=== PATIENT | male | born 1935 | race Caucasian/White ===

== ENCOUNTER 2017-12-02 20:16 | Inpatient (IN) ==
[2017-12-02] MEDS ORDERED: 0.9 % Sodium Chloride 500 ML IVC ONE (20:19)
[2017-12-02] MEDS ORDERED: Propofol 500 MG/50 ML INFUS..BTL ONE (20:28)
[2017-12-02] MEDS ORDERED: Propofol 500 MG/50 ML INFUS..BTL IVC SCH (20:30)
--- NOTE | 2017-12-02 20:31 | Emergency Department Note ---
Disposition Clinical Impression: Endotracheally intubated, Infiltrate of lung present on imaging of chest Postoperative cardiac arrest Qualifiers: Procedure type: cardiac Qualified Code(s): I97.120 - Postprocedural cardiac arrest following cardiac surgery Disposition: Admitted As Inpatient Condition: Critical [facility]Primary Care Provider[facility] - Forms: ED Satisfaction Letter, Work/School Release Time of Disposition: 00:06 General Adult HPI - General Chief complaint: ED General Medical Stated complaint: Post Arrest Time Seen by Provider: 12/02/17 20:19 Source: EMS Mode of arrival: EMS Limitations: physical limitation Nursing Notes Reviewed: Yes Vital Signs Reviewed: Yes - History of Present Illness HPI Narrative: Patient is an 82-year-old male that presents to the emergency department after cardiac arrest at the [facility]. Patient was transferred here for further evaluation and management. Patient was unresponsive and intubated upon arrival. Patient is being seen at the [facility] for respiratory issues. - Related Data Home Medications Medication Instructions Recorded Confirmed Acetaminophen [Tylenol] 1,000 mg PO TID PRN 12/02/17 12/02/17 Calcium Carbonate/Vitamin D3 1 each PO BID 12/02/17 12/02/17 [Calcium 500-Vit D3 200 Tablet] Cholecalciferol (D-3) [Vitamin D] 2,000 unit PO DAILY 12/02/17 12/02/17 Diclofenac Sodium [Voltaren] 2 gm TP QID PRN MDD 16 gm 12/02/17 12/02/17 Duloxetine HCl [Cymbalta] 60 mg PO DAILY 12/02/17 12/02/17 Finasteride [Proscar] 5 mg PO DAILY 12/02/17 12/02/17 Lactose-Reduced Food [Ensure Plus] 1 bottle PO BID 12/02/17 12/02/17 Levothyroxine [Synthroid] 75 mcg PO 0630 12/02/17 12/02/17 Lidocaine Patch [Lidoderm 5% patch] 1 each TP DAILY 12/02/17 12/02/17 Multivitamin-Min/Iron/FA/Vit K 1 each PO DAILY 12/02/17 12/02/17 [Multi-Day Plus Minerals Tablet] Omeprazole [PriLOSEC] 20 mg PO DAILY 12/02/17 12/02/17 Sennosides [Senna] 8.6 mg PO DAILY 12/02/17 12/02/17 Tamsulosin [Flomax] 0.4 mg PO HS 12/02/17 12/02/17 Allergies Allergy/AdvReac Type Severity Reaction Status Date / Time Sulfa (Sulfonamide Allergy See Verified 12/02/17 20:46 Antibiotics) Comments Limitations: ROS unobtainable due to patients medical condition Physical Exam - General Limitations: physical limitation - Head Head exam: atraumatic, normocephalic - Neck Neck exam: Present: normal inspection, trachea midline - Respiratory Respiratory exam: Present: other (Patient is currently intubated with bilateral breath sounds) - Cardiovascular Cardiovascular exam: Present: regular rate, normal rhythm, normal heart sounds, +S1, +S2 - Abdominal Exam Abdominal exam: Present: soft, normal bowel sounds. Absent: distention, rigidity - Neurological Exam Neurological exam: Present: other (Patient is currently intubated and sedated ) - Psychiatric Psychiatric exam: Present: other (Unable to assess due to patient being intubated and sedated ) - Skin Skin exam: Present: warm, dry, intact Course Vital Signs Temperature 0 F L 12/02/17 20:19 Pulse Rate 87 12/02/17 20:19 Respiratory Rate 12 12/02/17 20:19 Blood Pressure 183/125 12/02/17 20:19 O2 Sat by Pulse Oximetry 100 12/02/17 20:19 Temperature 0 F L 12/02/17 20:19 Pulse Rate 76 12/02/17 23:05 Respiratory Rate 16 12/02/17 23:05 Blood Pressure 142/94 12/02/17 23:05 O2 Sat by Pulse Oximetry 100 12/02/17 23:05 Oxygen Delivery Oxygen Delivery Ventilator Medical Decision Making - MDM Narrative Medical decision making narrative: Due the patient presenting postarrest EKG, chest x-ray ct scan and laboratory testing. I spoke with the patient's family upon their arrival and explained the current status of the patient. I also informed me that the patient is currently being worked up for possible ALS. They have also described the patient wanting to be full code based on he would like a couple rounds of CPR but would not want to be on a ventilator long-term. The patient's EKG showed depressions in V3 and V4 however there is no previous EKG for comparison. EKGs were sent to Dr. Larsen the trainer for review. We discussed this case and have her reviewed the EKGs and she was in agreement that there was no evidence of STEMI or Brugada on either the EKGs that were obtained on this patient. Troponin was negative. Patient had a questionable right upper lobe infiltrate. The patient has been given broad-spectrum antibiotics here in the emergency department. I called and spoke to the hospitalist and the patient has been accepted to their service. The patient will be admitted to the hospital at this time for further evaluation and management. There is been no acute changes while the patient has been here in the emergency department. - Lab Data Lab results reviewed: Yes I reviewed the patient's lab results. Result diagrams: 12/02/17 20:25 12/02/17 20:25 Lab Results 12/02/17 12/02/17 12/02/17 Range/Units 20:20 20:25 20:25 WBC (4.3-11.1) K/mcL RBC (4.19-5.50) M/mcL Hgb (12.9-16.9) g/dL Hct (37.5-50.1) % MCV (83.0-100.0) fL MCH (28.0-33.3) pg MCHC (31.6-35.5) g/dL RDW (11.5-14.5) % Plt Count (140-400) K/mcL MPV (9.4-12.4) fL Immature Gran % (0-4) % Seg Neutrophils % % Lymphocytes % % Monocytes % % Eosinophils % % Basophils % % Neutrophils # (1.6-8.9) K/mcL Lymphocytes # (0.6-4.6) K/mcL Monocytes # (0.0-1.3) K/mcL Eosinophils # (0.0-0.6) K/mcL Basophils # (0.0-0.2) K/mcL Platelet Estimate (Normal) PT 9.5 (9.4-12.1) Seconds INR 0.9 APTT 39.3 H (26.0-36.0) Seconds ABG pH (7.32-7.45) pH Units ABG pCO2 (35-45) mmHg ABG pO2 (85-104) mmHg ABG HCO3 (21-27) mEq/L ABG Total CO2 (20-26) mEq/L ABG O2 Saturation (95-98) % ABG Base Excess (-2 to 3) mEq/L Sodium (136-145) mEq/L Potassium (3.5-5.1) mEq/L Chloride (98-107) mEq/L Carbon Dioxide (23-29) mEq/L BUN (8-23) mg/dL Creatinine (0.70-1.30) mg/dL Est GFR ( Amer) (> 60) Est GFR (Non-Af Amer) (> 60) BUN/Creatinine Ratio (6-26) Glucose (70-105) mg/dL POC Glucose 209 H (58-89) Calculated Osmolality (280-300) Calcium (8.6-10.3) mg/dL Total Bilirubin (0.3-1.0) mg/dL Direct Bilirubin (0.0-0.2) mg/dL Indirect Bilirubin (0.0-1.2) mg/dL AST (13-39) Units/L ALT (7-52) Units/L Alkaline Phosphatase (34-104) Units/L Troponin I (< 0.04) ng/mL B-Natriuretic Peptide 43 (Less than 100) pg/mL Serum Total Protein (6.4-8.9) g/dL Albumin (3.5-5.7) g/dL Globulin (2.4-3.5) g/dL Albumin/Globulin Ratio (1.1-2.2) Lipase (11-82) Units/L Urine Color (Yellow) Urine Clarity (Clear) Urine pH (5.0-8.0) pH Units Ur Specific Roann (1.010-1.025) Urine Protein (Neg-Trace) mg/dL Urine Glucose (UA) (Normal) mg/dL Urine Ketones (Negative) mg/dL Urine Blood (Negative) Urine Nitrite (Negative) Urine Bilirubin (Negative) Urine Urobilinogen (Normal) mg/dL Ur Leukocyte Esterase (Negative) Urine Microscopic RBC (0-3) per hpf Urine Microscopic WBC (0-3) per hpf Ur Squamous Epith Cells (None-Few) per lpf Urine Bacteria (None-Few) per hpf Hyaline Casts (None-Few) per lpf Ur Culture Indicated? (NO) 12/02/17 12/02/17 12/02/17 Range/Units 20:25 20:25 20:25 WBC 8.1 (4.3-11.1) K/mcL RBC 4.14 L (4.19-5.50) M/mcL Hgb 13.3 (12.9-16.9) g/dL Hct 37.5 (37.5-50.1) % MCV 90.6 (83.0-100.0) fL MCH 32.1 (28.0-33.3) pg MCHC 35.5 (31.6-35.5) g/dL RDW 12.1 (11.5-14.5) % Plt Count 272 (140-400) K/mcL MPV 9.2 L (9.4-12.4) fL Immature Gran % 0.6 (0-4) % Seg Neutrophils % 94.2 % Lymphocytes % 1.8 % Monocytes % 3.4 % Eosinophils % 0.0 % Basophils % 0.0 % Neutrophils # 7.6 (1.6-8.9) K/mcL Lymphocytes # 0.2 L (0.6-4.6) K/mcL Monocytes # 0.3 (0.0-1.3) K/mcL Eosinophils # 0.0 (0.0-0.6) K/mcL Basophils # 0.0 (0.0-0.2) K/mcL Platelet Estimate Normal (Normal) PT (9.4-12.1) Seconds INR APTT (26.0-36.0) Seconds ABG pH (7.32-7.45) pH Units ABG pCO2 (35-45) mmHg ABG pO2 (85-104) mmHg ABG HCO3 (21-27) mEq/L ABG Total CO2 (20-26) mEq/L ABG O2 Saturation (95-98) % ABG Base Excess (-2 to 3) mEq/L Sodium 132 L (136-145) mEq/L Potassium 4.1 (3.5-5.1) mEq/L Chloride 96 L (98-107) mEq/L Carbon Dioxide 29 (23-29) mEq/L BUN 30 H (8-23) mg/dL Creatinine 0.53 L (0.70-1.30) mg/dL Est GFR ( Amer) > 60 (> 60) Est GFR (Non-Af Amer) > 60 (> 60) BUN/Creatinine Ratio 57 H (6-26) Glucose 230 H (70-105) mg/dL POC Glucose (58-89) Calculated Osmolality 287 (280-300) Calcium 8.8 (8.6-10.3) mg/dL Total Bilirubin 0.4 (0.3-1.0) mg/dL Direct Bilirubin 0.0 (0.0-0.2) mg/dL Indirect Bilirubin 0.4 (0.0-1.2) mg/dL AST 37 (13-39) Units/L ALT 25 (7-52) Units/L Alkaline Phosphatase 57 (34-104) Units/L Troponin I < 0.03 (< 0.04) ng/mL B-Natriuretic Peptide (Less than 100) pg/mL Serum Total Protein 6.3 L (6.4-8.9) g/dL Albumin 3.8 (3.5-5.7) g/dL Globulin 2.5 (2.4-3.5) g/dL Albumin/Globulin Ratio 1.5 (1.1-2.2) Lipase 60 (11-82) Units/L Urine Color (Yellow) Urine Clarity (Clear) Urine pH (5.0-8.0) pH Units Ur Specific Roann (1.010-1.025) Urine Protein (Neg-Trace) mg/dL Urine Glucose (UA) (Normal) mg/dL Urine Ketones (Negative) mg/dL Urine Blood (Negative) Urine Nitrite (Negative) Urine Bilirubin (Negative) Urine Urobilinogen (Normal) mg/dL Ur Leukocyte Esterase (Negative) Urine Microscopic RBC (0-3) per hpf Urine Microscopic WBC (0-3) per hpf Ur Squamous Epith Cells (None-Few) per lpf Urine Bacteria (None-Few) per hpf Hyaline Casts (None-Few) per lpf Ur Culture Indicated? (NO) 12/02/17 12/02/17 Range/Units 20:41 22:31 WBC (4.3-11.1) K/mcL RBC (4.19-5.50) M/mcL Hgb (12.9-16.9) g/dL Hct (37.5-50.1) % MCV (83.0-100.0) fL MCH (28.0-33.3) pg MCHC (31.6-35.5) g/dL RDW (11.5-14.5) % Plt Count (140-400) K/mcL MPV (9.4-12.4) fL Immature Gran % (0-4) % Seg Neutrophils % % Lymphocytes % % Monocytes % % Eosinophils % % Basophils % % Neutrophils # (1.6-8.9) K/mcL Lymphocytes # (0.6-4.6) K/mcL Monocytes # (0.0-1.3) K/mcL Eosinophils # (0.0-0.6) K/mcL Basophils # (0.0-0.2) K/mcL Platelet Estimate (Normal) PT (9.4-12.1) Seconds INR APTT (26.0-36.0) Seconds ABG pH 7.33 (7.32-7.45) pH Units ABG pCO2 63 H (35-45) mmHg ABG pO2 411 H (85-104) mmHg ABG HCO3 33 H (21-27) mEq/L ABG Total CO2 35 H (20-26) mEq/L ABG O2 Saturation 100 H (95-98) % ABG Base Excess 5 H (-2 to 3) mEq/L Sodium (136-145) mEq/L Potassium (3.5-5.1) mEq/L Chloride (98-107) mEq/L Carbon Dioxide (23-29) mEq/L BUN (8-23) mg/dL Creatinine (0.70-1.30) mg/dL Est GFR ( Amer) (> 60) Est GFR (Non-Af Amer) (> 60) BUN/Creatinine Ratio (6-26) Glucose (70-105) mg/dL POC Glucose (58-89) Calculated Osmolality (280-300) Calcium (8.6-10.3) mg/dL Total Bilirubin (0.3-1.0) mg/dL Direct Bilirubin (0.0-0.2) mg/dL Indirect Bilirubin (0.0-1.2) mg/dL AST (13-39) Units/L ALT (7-52) Units/L Alkaline Phosphatase (34-104) Units/L Troponin I (< 0.04) ng/mL B-Natriuretic Peptide (Less than 100) pg/mL Serum Total Protein (6.4-8.9) g/dL Albumin (3.5-5.7) g/dL Globulin (2.4-3.5) g/dL Albumin/Globulin Ratio (1.1-2.2) Lipase (11-82) Units/L Urine Color Yellow (Yellow) Urine Clarity Cloudy A (Clear) Urine pH 6.0 (5.0-8.0) pH Units Ur Specific Roann 1.026 H (1.010-1.025) Urine Protein Trace (Neg-Trace) mg/dL Urine Glucose (UA) 500 H (Normal) mg/dL Urine Ketones Negative (Negative) mg/dL Urine Blood Small H (Negative) Urine Nitrite Negative (Negative) Urine Bilirubin Negative (Negative) Urine Urobilinogen Normal (Normal) mg/dL Ur Leukocyte Esterase Large H (Negative) Urine Microscopic RBC 0-3 (0-3) per hpf Urine Microscopic WBC TNTC H (0-3) per hpf Ur Squamous Epith Cells Few (None-Few) per lpf Urine Bacteria None Seen (None-Few) per hpf Hyaline Casts None Seen (None-Few) per lpf Ur Culture Indicated? YES A (NO) - Radiology Data Radiology results reviewed: Yes I reviewed the patient's radiology results. Chest X-Ray 12/02/17 20:20 IMPRESSION: Questionable right upper lobe infiltrate. Endotracheal tube tip above the thoracic inlet 7.2 cm above the akash. Suggest advancement several cm. D/ / Gera Shay MD / Gera Shay MD Interpreting Provider: Gera Shay MD Head CT 12/02/17 20:40 IMPRESSION: No acute intracranial abnormality. 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 D/ / Franklin Roberts MD / Franklin Roberts MD Interpreting Provider: Franklin Roberts MD - EKG Data EKG #1 EKG attestation: Yes I reviewed and interpreted this EKG. EKG results narrative: EKG showed a sinus rhythm at a rate of 84 bpm, SD interval of 165, QRS duration 152, QTC of 444 with a normal axis. There was some anterior lateral depressions in leads V3 V4, V5 and V6. EKG #2 EKG attestation: Yes I reviewed and interpreted this EKG. EKG results narrative: EKG showed a sinus rhythm at a rate of 76 bpm, SD interval of 151, respiration of 94, QTC of 433 with a normal axis. There is no STEMI noted on this EKG. The patient's EKGs have been sent to cardiology for review. They are in agreement that there is no evidence of STEMI or Brugada on EKG. Critical Care Time Critical Care Time: Yes Total Critical Care Time: 45 Attestation: Critical care performed: Time is exclusive of separately billable procedures. Time includes: direct patient care, patient reassessment, coordination of patient care, interpretation of data (laboratory data, radiology data, and respiratory data), review of patient's medical records, medical consultation and documentation of patient care. Procedures included in critical care time: Procedures excluded from critical care time: Attestation Statement - Attestation Attestation: I, Pedro Joseph DO, examined this patient [id number] and my medical decision-making was reviewed with Dr. Carl Chinchilla, Resident Physician. I agree with the documented findings, disposition and treatment plan as described except to the extent set forth below. Please see my progress notes for details. 82-year-old male presents from the [facility] for evaluation of post cardiac arrest. Patient was on their critical care for that facility when the patient went into respiratory distress and lost pulses. Chest compressions were started according to the EMS transport. Patient was not given any medications and after several minutes of chest compressions patient had return of spontaneous circulation. No EKG or rhythm strip was transferred over with the patient this time. The medical chart that was sent with him had no information noted outside of some basic screening labs. Vital signs on presentation show a strong pulse. Patient is shaking on presentation and barking at the ET tube. No sedation was utilized according to them. Head is otherwise atraumatic pupils are reactive at this time. ET tube should prevent symptom provides bilateral breath sounds. Chest wall does not show any crepitus or deformity at this point. Abdomen is soft at this time. No pulsatile lesions or masses noted. Bilateral extremities appear to be stable no trauma or injury. IV access in the right side of his upper extremity was obtained. IV access will be obtained at this point. Unknown etiology to the cardiac arrest. We do not have a rhythm noted at this time secondary to the patient's presentation. Patient will be started on hypothermic protocol head CT the head chest x-ray for confirmation of the CT findings and labs drawn. Antibiotic regimen will be started at the patient has any infectious etiology noted. Patient otherwise is potentially critically ill and may decompensate or have cardiac arrest and in the emergency room. Will attempt admitted to the ICU for definitive management. Family has been informed of the patient's critical presentation and illness. I also understand that he has a living will and wishes to have what appears to be DNR CCA arrest with intubation and cardiac resuscitation in the patient continues to have brain function and cardiac function. We are going to treat him currently is a full code secondary to the discrepancy in the patient's wishes as well as the way the family describes it. Patient will have continued cardiac intervention. Sedation but this time. We will continue monitoring in the emergency room as he ICU admission is completed. See detailed documentation of the physical exam, medical intervention, medical decision-making, critical care, consultation and disposition and the resident physician's note [id number] Patient is stabilized at this time. CT of the head is otherwise unremarkable. Chest x-ray does show possible pneumonia. Antibiotic regimen was started here in the emergency room. Patient has appropriate IV access obtained. No other acute myocardial related issues noted. 2 EKGs collected that shows stable morphology. These are both reviewed with the on-call interventionalists Dr. Larsen. Patient will be admitted for definitive management. Family also plan and are comfortable with the disposition this time. Patient has been stable throughout the treatment course. Hypothermic therapy has been attempted to the treatment course. Definitive management to be completed in the hospital setting.
[2017-12-02 20:39] LABS: Hematocrit 37.5 % (37.5-50.1); Hemoglobin 13.3 g/dL (12.9-16.9); Immature Granulocytes % 0.6 % (0-4); Lymphocytes # 0.2 K/mcL (0.6-4.6); Lymphocytes % 1.8 %; Mean Corpuscular HGB Conc 35.5 g/dL (31.6-35.5); Mean Corpuscular Hemoglobin 32.1 pg (28.0-33.3); Mean Corpuscular Volume 90.6 fL (83.0-100.0); Mean Platelet Volume 9.2 fL (9.4-12.4); Monocytes # 0.3 K/mcL (0.0-1.3); Monocytes % 3.4 %; Platelet Count 272 K/mcL (140-400); Red Blood Count 4.14 M/mcL (4.19-5.50); Red Cell Distribution Width 12.1 % (11.5-14.5); Segmented Neutrophils % 94.2 %
[2017-12-02] MEDS ORDERED: *HR* Midazolam HCl 2 MG/2 ML VIAL IVP ONE (20:40)
[2017-12-02 20:42] LABS: Neutrophils # 7.6 K/mcL (1.6-8.9)
[2017-12-02 20:44] LABS: INR 0.9; Prothrombin Time 9.5 Seconds (9.4-12.1)
[2017-12-02 20:47] LABS: Activated Partial Thrombo Time 39.3 Seconds (26.0-36.0)
[2017-12-02 20:56] LABS: Bilirubin,Urine Negative (Negative); Blood,Urine Small (Negative); Clarity,Urine Cloudy (Clear); Color,Urine Yellow (Yellow); Glucose,Urine (UA) 500 mg/dL (Normal); Ketones,Urine Negative (Negative); Leukocyte Esterase,Urine Large (Negative); Nitrite,Urine Negative (Negative); Protein,Urine Trace mg/dL (Neg-Trace); Specific Gravity,Urine 1.026 (1.010-1.025); Urobilinogen,Urine Normal (Normal)
[2017-12-02 20:58] LABS: Alanine Aminotransferase 25 Units/L (7-52); Albumin 3.8 g/dL (3.5-5.7); Albumin/Globulin Ratio 1.5 (1.1-2.2); Alkaline Phosphatase 57 Units/L (34-104); Aspartate Amino Transferase 37 Units/L (13-39); BUN/Creatinine Ratio 57 (6-26); Bilirubin,Indirect 0.4 mg/dL (0.0-1.2); Bilirubin,Total 0.4 mg/dL (0.3-1.0); Blood Urea Nitrogen 30 mg/dL (8-23); Calcium 8.8 mg/dL (8.6-10.3); Carbon Dioxide 29 mEq/L (23-29); Chloride 96 mEq/L (98-107); Globulin 2.5 g/dL (2.4-3.5); Glucose 230 mg/dL (70-105); Lipase 60 Units/L (11-82); Osmolality,Calculated 287 (280-300); Potassium 4.1 mEq/L (3.5-5.1); Sodium 132 mEq/L (136-145); Total Protein 6.3 g/dL (6.4-8.9); eGFR For African Americans > 60 (> 60); eGFR For Non-African Americans > 60 (> 60)
[2017-12-02 20:58] LABS: Bacteria,Urine None Seen per hpf (None-Few); Hyaline Casts,Urine None Seen per lpf (None-Few); RBC,Urine 0-3 per hpf (0-3); Squamous Epithelial Cell,Urine Few per lpf (None-Few); WBC,Urine TNTC per hpf (0-3)
[2017-12-02] MEDS ORDERED: Vancomycin 1,000 MG in D5% in Water 250 ML IVPB ONE (21:26)
[2017-12-02] MEDS ORDERED: Piperacillin/Tazobactam 3.375 GM/200 ML BAG IVPB STA (21:26)
[2017-12-02 21:29] LABS: Platelet Estimate Normal (Normal)
[2017-12-02] MEDS ORDERED: Piperacillin/Tazobactam 3.375 GM in Water for inj. (sterile) 20 ML IVP ONE (22:00)
[2017-12-02 22:35] LABS: ABG Base Excess 5 mEq/L (-2 to 3); ABG HCO3 33 mEq/L (21-27); ABG Oxygen Saturation 100 % (95-98); ABG PCO2 63 mmHg (35-45); ABG PH 7.33 pH Units (7.32-7.45); ABG PO2 411 mmHg (85-104); ABG TCO2 35 mEq/L (20-26)
[2017-12-03] MEDS ORDERED: Acetaminophen 650 MG RECTAL SUPP RC PRN (00:56)
[2017-12-03] MEDS ORDERED: D5% in Water 1,000 ML IVC PRN (01:04)
[2017-12-03] MEDS ORDERED: *HR* Dextrose 50 % in Water (Syg) 50 ML SYRINGE IVP PRN (01:04)
[2017-12-03] MEDS ORDERED: Dextrose Gel 15 GM/37.5 ML TUBE PO PRN ×2 (01:04)
--- NOTE | 2017-12-03 01:12 | Internal Med History&Physical ---
Date of Encounter: 12/03/17 Time of Encounter: 00:15 Assessment and Plan (1) Cardiac arrest Current visit: Yes Status: Acute Pt had cardiac arrest for unknown reason. Had ACLS in [place] and was intubated. Troponin negative, EKG reviewed by fork truck driver. - Cont post ACLS protocol. - Strict normothermia. Vitals q 30 min - SSI q6h to control hyperglycemia - Pt doesn't need pressor, on iv propofol for sedation. - Cont ventilation support. - Consult Critical care physician. Critical care time 40 min include chart review, hx, physical and medical decision making. (2) DVT prophylaxis Current visit: Yes Status: Acute EPCD (3) Endotracheally intubated Current visit: Yes Status: Acute Cont ventilation. (4) Infiltrate of lung present on imaging of chest Current visit: Yes Status: Acute Will empirically treat pt with vanco and zosyn, f/u blood culture. Internal Medicine - H&P: HPI Chief complaint: Cardiac arrest Admitted From: Home Plans for Post Hospital Care: Home History of present illness: Mr. Schmidt is a 82 year old male sent from [place] for cardiac arrest s/p ACLS. Pt is intubated and family is not at bedside. Hx obtained from transfer documentation and ER note. Pt is currently being worked up for possible ALS. Pt is treated with respiratory disease recently. Pt had cardiac arrest and intubated in [place] and transferred to our hospital for further management. In our ER, CT head unremarkable. CXR shows questionable DIYA infiltrate. Past Med Surg Social Fam HX - Past Medical History Medical history: hyperlipidemia, hypertension, thyroid disease - Social History Smoking Status: Unknown if ever smoked Alcohol use: unknown Drug use: unknown - Family History Mother History Unknown: Yes Internal Medicine - H&P: Meds Acetaminophen [Tylenol] 1,000 mg PO TID PRN 12/02/17 [History] Calcium Carbonate/Vitamin D3 [Calcium 500-Vit D3 200 Tablet] 1 each PO BID 12/02 [History] Cholecalciferol (D-3) [Vitamin D] 2,000 unit PO DAILY 12/02/17 [History] Diclofenac Sodium [Voltaren] 2 gm TP QID PRN MDD 16 gm 12/02/17 [History] Duloxetine HCl [Cymbalta] 60 mg PO DAILY 12/02/17 [History] Finasteride [Proscar] 5 mg PO DAILY 12/02/17 [History] Lactose-Reduced Food [Ensure Plus] 1 bottle PO BID 12/02/17 [History] Levothyroxine [Synthroid] 75 mcg PO 0630 12/02/17 [History] Lidocaine Patch [Lidoderm 5% patch] 1 each TP DAILY 12/02/17 [History] Multivitamin-Min/Iron/FA/Vit K [Multi-Day Plus Minerals Tablet] 1 each PO DAILY 12/02/17 [History] Omeprazole [PriLOSEC] 20 mg PO DAILY 12/02/17 [History] Sennosides [Senna] 8.6 mg PO DAILY 12/02/17 [History] Tamsulosin [Flomax] 0.4 mg PO HS 12/02/17 [History] 3 Allergy/AdvReac Type Severity Reaction Status Date / Time Sulfa (Sulfonamide Allergy See Verified 12/02/17 20:46 Antibiotics) Comments ROS unobtainable: due to endotracheal tube All Systems PM: A 10-system review of systems was performed and is negative for pertinent findings except as documented above in the HPI. - Constitutional Vitals: Temp Pulse Resp BP Pulse Ox 0 F L 76 16 142/94 100 12/02/17 20:19 12/02/17 23:05 12/02/17 23:05 12/02/17 23:05 12/02/17 23:05 General appearance: Present: A&O X 0 - Head Head exam: Present: atraumatic, normocephalic - Eye Eye exam: Present: PERRL, conjuntiva pink, sclera anicteric Pupils: Present: PERRL - Neck Neck exam general surgery: Present: supple, trachea midline. Absent: lymphadenopathy - Respiratory Respiratory exam: Present: CTAB. Absent: accessory muscle use, rales, rhonchi, wheezes - Cardiovascular Cardiovascular exam: Present: RRR, +S1, +S2. Absent: diastolic murmur, gallop, rubs, systolic murmur - GI/Abdominal GI/Abdominal exam: Present: normal bowel sounds, soft, no peritoneal signs. Absent: distended - Extremities Exam Extremities exam: Present: warm, radial pulses palpable and symmetrical. Absent : calf tenderness, cyanotic, pedal edema - Neurological Exam Neurological exam: Absent: facial droop - Skin Skin exam: Present: dry, intact Internal Med - H&P Results - Labs CBC & Chem 7: 12/02/17 20:25 12/02/17 20:25 Labs: Short CBC 12/02/17 Range/Units 20:25 WBC 8.1 (4.3-11.1) K/mcL Hgb 13.3 (12.9-16.9) g/dL Hct 37.5 (37.5-50.1) % Plt Count 272 (140-400) K/mcL Neutrophils # 7.6 (1.6-8.9) K/mcL BMP 12/02/17 20:25 Sodium 132 L Potassium 4.1 Chloride 96 L Carbon Dioxide 29 BUN 30 H Creatinine 0.53 L Glucose 230 H Calcium 8.8 Cardiac Enzymes 12/02/17 Range/Units 20:25 Troponin I < 0.03 (< 0.04) ng/mL Liver Function 12/02/17 Range/Units 20:25 Total Bilirubin 0.4 (0.3-1.0) mg/dL Direct Bilirubin 0.0 (0.0-0.2) mg/dL AST 37 (13-39) Units/L ALT 25 (7-52) Units/L Alkaline Phosphatase 57 (34-104) Units/L Albumin 3.8 (3.5-5.7) g/dL Urine 12/02/17 Range/Units 20:41 Urine Color Yellow (Yellow) Urine Clarity Cloudy A (Clear) Urine pH 6.0 (5.0-8.0) pH Units Ur Specific [employer] 1.026 H (1.010-1.025) Urine Protein Trace (Neg-Trace) mg/dL Urine Glucose (UA) 500 H (Normal) mg/dL - ABG Interpretation ABG results: 12/02/17 22:31 ABG pH 7.33 ABG pCO2 63 H ABG pO2 411 H ABG HCO3 33 H ABG Total CO2 35 H ABG O2 Saturation 100 H ABG Base Excess 5 H - Impressions ITS Impressions Chest X-Ray 12/02/17 20:20 IMPRESSION: Questionable right upper lobe infiltrate. Endotracheal tube tip above the thoracic inlet 7.2 cm above the akash. Suggest advancement several cm. D/ / Gera Shay MD / Gera Shay MD Interpreting Provider: Gera Shay MD Head CT 12/02/17 20:40 IMPRESSION: No acute intracranial abnormality. 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 D/ / Franklin Roberts MD / Franklin Roberts MD Interpreting Provider: Franklin Roberts MD
[2017-12-03 01:36] LABS: Basophils % 0.1 %; Hematocrit 36.1 % (37.5-50.1); Hemoglobin 12.7 g/dL (12.9-16.9); Immature Granulocytes % 0.4 % (0-4); Lymphocytes # 0.4 K/mcL (0.6-4.6); Lymphocytes % 2.7 %; Mean Corpuscular HGB Conc 35.2 g/dL (31.6-35.5); Mean Corpuscular Hemoglobin 31.9 pg (28.0-33.3); Mean Corpuscular Volume 90.7 fL (83.0-100.0); Mean Platelet Volume 9.1 fL (9.4-12.4); Monocytes % 4.6 %; Platelet Count 254 K/mcL (140-400); Red Blood Count 3.98 M/mcL (4.19-5.50); Red Cell Distribution Width 12.1 % (11.5-14.5); Segmented Neutrophils % 92.2 %
[2017-12-03 01:37] LABS: Monocytes # 0.8 K/mcL (0.0-1.3); Neutrophils # 14.9 K/mcL (1.6-8.9)
[2017-12-03 01:41] LABS: INR 0.9; Prothrombin Time 9.5 Seconds (9.4-12.1)
[2017-12-03 01:50] LABS: Alanine Aminotransferase 22 Units/L (7-52); Albumin 3.7 g/dL (3.5-5.7); Albumin/Globulin Ratio 1.7 (1.1-2.2); Alkaline Phosphatase 50 Units/L (34-104); Aspartate Amino Transferase 33 Units/L (13-39); BUN/Creatinine Ratio 62 (6-26); Bilirubin,Total 0.5 mg/dL (0.3-1.0); Blood Urea Nitrogen 29 mg/dL (8-23); Calcium 9.1 mg/dL (8.6-10.3); Carbon Dioxide 29 mEq/L (23-29); Chloride 97 mEq/L (98-107); Globulin 2.2 g/dL (2.4-3.5); Glucose 142 mg/dL (70-105); Osmolality,Calculated 284 (280-300); Potassium 3.9 mEq/L (3.5-5.1); Sodium 133 mEq/L (136-145); Total Protein 5.9 g/dL (6.4-8.9); eGFR For African Americans > 60 (> 60); eGFR For Non-African Americans > 60 (> 60)
[2017-12-03] MEDS: 0.9 % Sodium Chloride 1,000 ML IVC SCH ×3 (01:57→18:24)
[2017-12-03] MEDS ORDERED: Vancomycin 1,000 MG in D5% in Water 250 ML IVPB SCH (02:00)
[2017-12-03 05:15] LABS: ABG Base Excess 6 mEq/L (-2 to 3); ABG HCO3 31 mEq/L (21-27); ABG Oxygen Saturation 100 % (95-98); ABG PCO2 47 mmHg (35-45); ABG PH 7.43 pH Units (7.32-7.45); ABG PO2 179 mmHg (85-104); ABG TCO2 33 mEq/L (20-26); Blood Gas Modality VC
[2017-12-03] MEDS: Insulin LISPRO 300 UNITS/3 ML VIAL SQ SCH ×4 (05:43→23:47)
[2017-12-03] MEDS: Piperacillin/Tazobactam 3.375 GM/200 ML BAG IVPB SCH ×3 (05:59→23:20)
[2017-12-03] MEDS ORDERED: Lacri-Lube 3.5 GM TUBE BOTH EYES PRN (07:16)
[2017-12-03 07:52] LABS: ABG Base Excess 6 mEq/L (-2 to 3); ABG HCO3 33 mEq/L (21-27); ABG Oxygen Saturation 99 % (95-98); ABG PCO2 65 mmHg (35-45); ABG PH 7.32 pH Units (7.32-7.45); ABG PO2 143 mmHg (85-104); ABG TCO2 35 mEq/L (20-26); Blood Gas Modality CPAP/PS; Blood Gas PEEP 5 cm H2O; Blood Gas Pressure Support 5 cm H2O
[2017-12-03] MEDS ORDERED: *HR* Midazolam HCl 2 MG/2 ML VIAL IV ONE (08:04)
[2017-12-03] MEDS: Lacri-Lube 3.5 GM TUBE BOTH EYES SCH ×5 (08:08→23:46)
[2017-12-03] MEDS: Chlorhexidine Rinse 15 ML MOUTHWASH MM SCH ×2 (08:08→20:18)
[2017-12-03] MEDS: Pantoprazole 40 MG VIAL IVPB SCH (08:12)
[2017-12-03] MEDS ORDERED: *HR* Enoxaparin 40 MG/0.4 ML SYRINGE SQ ONE (08:31)
--- NOTE | 2017-12-03 08:57 | Pulmonology Consult Note ---
<Jose Cruz Magana - Last Filed: 12/03/17 11:07> Date of Encounter: 12/03/17 Time of Encounter: 08:56 Assessment and Plan (1) Cardiac arrest Current Visit: Yes Status: Acute Patient suffered cardiac arrest at OSH for unknown reason. ACLS was performed and patient was intubated. Trop negative x 3 EKG reviewed by cardiology Continue post ACLS protocol sedated on vent Plan: continue Mechancial vent ween as able Started patient on Duonebs, and Steroids consulted nutrition to start tube feeds (2) PNA (pneumonia) Current Visit: Yes Status: Acute CXR: Questionable RUL infiltrate. Started on Vanc and Zosyn BCX pending from [facility] WBC up to 16.2 today from 8.1 Plan: Continue vanc, zosyn with plans to de-escalate continue to monitor Qualifiers: Pneumonia type: due to unspecified organism Laterality: right Lung location: upper lobe of lung Qualified Code(s): J18.1 - Lobar pneumonia, unspecified organism (3) Hypothyroidism Current Visit: Yes Status: Acute Patient with hx of Hypothyroidism on Synthroid Plan: restarted home synthroid Qualifiers: Hypothyroidism type: unspecified Qualified Code(s): E03.9 - Hypothyroidism , unspecified (4) DVT prophylaxis Current Visit: Yes Status: Acute Patient started on Lovennox 40mg Daily Cr. clearance 71 Plan: continue lovennox History of Present Illness Consult date: 12/03/17 Requesting physician: Wen Malin Reason for consult: other (cardiac arrest s/p acls) Chief complaint: Cardiac arrest History of present illness: 82yo M c pmhx of HTN, HLD, hypothyroidism admitted to [facility] after cardiac arrest at [facility], transferred s/p ACLS for further care. Patient admitted to ICU by hospitalist overnight. Patient is intubated and sedated with no family at bedside. History obtained from chart review. In ED CT head unremarkable and CXR shows possible RUL infiltrate. Past Med Surg Social Fam HX - Past Medical History Medical history: hyperlipidemia, hypertension, thyroid disease - Social History Smoking Status: Unknown if ever smoked Alcohol use: unknown Drug use: unknown - Family History Mother History Unknown: Yes Medications and Allergies Acetaminophen [Tylenol] 1,000 mg PO TID PRN 12/02/17 [History] Calcium Carbonate/Vitamin D3 [Calcium 500-Vit D3 200 Tablet] 1 each PO BID 12/02 [History] Cholecalciferol (D-3) [Vitamin D] 2,000 unit PO DAILY 12/02/17 [History] Diclofenac Sodium [Voltaren] 2 gm TP QID PRN MDD 16 gm 12/02/17 [History] Duloxetine HCl [Cymbalta] 60 mg PO DAILY 12/02/17 [History] Finasteride [Proscar] 5 mg PO DAILY 12/02/17 [History] Lactose-Reduced Food [Ensure Plus] 1 bottle PO BID 12/02/17 [History] Levothyroxine [Synthroid] 75 mcg PO 0630 12/02/17 [History] Lidocaine Patch [Lidoderm 5% patch] 1 each TP DAILY 12/02/17 [History] Multivitamin-Min/Iron/FA/Vit K [Multi-Day Plus Minerals Tablet] 1 each PO DAILY 12/02/17 [History] Omeprazole [PriLOSEC] 20 mg PO DAILY 12/02/17 [History] Sennosides [Senna] 8.6 mg PO DAILY 12/02/17 [History] Tamsulosin [Flomax] 0.4 mg PO HS 12/02/17 [History] 3 Allergy/AdvReac Type Severity Reaction Status Date / Time Sulfa (Sulfonamide Allergy See Verified 12/02/17 20:46 Antibiotics) Comments ROS unobtainable: due to endotracheal tube All Systems: A 10-system review of systems was performed and is negative for pertinent findings except as documented above in the HPI. Physical Examination Vital Signs: Vital Signs, Last 4 Hours Temp Pulse Resp BP Pulse Ox 12/03/17 08:29 97.0 F L 12/03/17 08:00 97.0 F L 86 14 135/64 100 12/03/17 07:00 87 16 132/64 100 12/03/17 06:18 10 100 12/03/17 06:00 80 14 98/68 100 12/03/17 05:00 70 14 96/60 100 General appearance: other (sedated on vent) Eyes: nonicteric ENT: oropharynx moist Neck: supple Effort: normal Auscultation: bilateral: diminished breath sounds Cardiovascular: regular rate and rhythm Gastrointestinal: normoactive bowel sounds, soft, non-distended Integumentary: normal Extremities: no cyanosis, no edema Musculoskeletal: no deformities unable to assess due to mental status Ventilator Settings Ventilator Settings: Ventilator Settings, Last 8 Hours Ventilator Mode VC+ Ventilator Mode VC+ Ventilator Mode CPAP Ventilator Mode VC+ Ventilator Mode VC+ Ventilator Mode VC+ Ventilator Mode VC+ Ventilator Mode VC+ Ventilator Tidal Volume 450 Setting Ventilator Tidal Volume 450 Setting Ventilator Tidal Volume 450 Setting Ventilator Tidal Volume 450 Setting Ventilator Tidal Volume 450 Setting Ventilator Tidal Volume 450 Setting Ventilator Tidal Volume 450 Setting Ventilator Respiratory Rate 14 Setting Ventilator Respiratory Rate 14 Setting Ventilator Respiratory Rate 14 Setting Ventilator Respiratory Rate 14 Setting Ventilator Respiratory Rate 14 Setting Ventilator Respiratory Rate 14 Setting Ventilator Respiratory Rate 14 Setting Actual Respiratory Rate 14 Actual Respiratory Rate 10 Actual Respiratory Rate 15 Positive End Expiratory 5 Pressure Positive End Expiratory 5 Pressure Positive End Expiratory 5 Pressure Positive End Expiratory 5 Pressure Positive End Expiratory 5 Pressure Positive End Expiratory 5 Pressure Positive End Expiratory 5 Pressure Positive End Expiratory 5 Pressure Peak Inspiratory Airway 17 Pressure Peak Inspiratory Airway 10 Pressure Peak Inspiratory Airway 10 Pressure Peak Inspiratory Airway 14 Pressure Peak Inspiratory Airway 16 Pressure Results - Laboratory Findings CBC and BMP: 12/03/17 01:24 12/03/17 01:24 ABG ABG pH 7.32 pH Units (7.32-7.45) 12/03/17 07:46 ABG pCO2 65 mmHg (35-45) H 12/03/17 07:46 ABG pO2 143 mmHg (85-104) H 12/03/17 07:46 ABG O2 Saturation 99 % (95-98) H 12/03/17 07:46 PT/INR, D-dimer PT 9.5 Seconds (9.4-12.1) 12/03/17 01:24 Abnormal lab findings: Abnormal lab results WBC 16.2 K/mcL (4.3-11.1) H D 12/03/17 01:24 RBC 3.98 M/mcL (4.19-5.50) L 12/03/17 01:24 Hgb 12.7 g/dL (12.9-16.9) L 12/03/17 01:24 Hct 36.1 % (37.5-50.1) L 12/03/17 01:24 MPV 9.1 fL (9.4-12.4) L 12/03/17 01:24 Neutrophils # 14.9 K/mcL (1.6-8.9) H 12/03/17 01:24 Lymphocytes # 0.4 K/mcL (0.6-4.6) L 12/03/17 01:24 APTT 39.3 Seconds (26.0-36.0) H 12/02/17 20:25 ABG pCO2 65 mmHg (35-45) H 12/03/17 07:46 ABG pO2 143 mmHg (85-104) H 12/03/17 07:46 ABG HCO3 33 mEq/L (21-27) H 12/03/17 07:46 ABG Total CO2 35 mEq/L (20-26) H 12/03/17 07:46 ABG O2 Saturation 99 % (95-98) H 12/03/17 07:46 ABG Base Excess 6 mEq/L (-2 to 3) H 12/03/17 07:46 Sodium 133 mEq/L (136-145) L 12/03/17 01:24 Chloride 97 mEq/L (98-107) L 12/03/17 01:24 BUN 29 mg/dL (8-23) H 12/03/17 01:24 Creatinine 0.47 mg/dL (0.70-1.30) L 12/03/17 01:24 BUN/Creatinine Ratio 62 (6-26) H 12/03/17 01:24 Glucose 142 mg/dL (70-105) H 12/03/17 01:24 POC Glucose 209 (58-89) H 12/02/17 20:20 Serum Total Protein 5.9 g/dL (6.4-8.9) L 12/03/17 01:24 Globulin 2.2 g/dL (2.4-3.5) L 12/03/17 01:24 Urine Clarity Cloudy (Clear) A 12/02/17 20:41 Ur Specific Sneads 1.026 (1.010-1.025) H 12/02/17 20:41 Urine Glucose (UA) 500 mg/dL (Normal) H 12/02/17 20:41 Urine Blood Small (Negative) H 12/02/17 20:41 Ur Leukocyte Esterase Large (Negative) H 12/02/17 20:41 Urine Microscopic WBC TNTC per hpf (0-3) H 12/02/17 20:41 Ur Culture Indicated? YES (NO) A 12/02/17 20:41 - Clinical Findings Intake & Output: Intake & Output 12/02/17 12/03/17 12/03/17 23:59 07:59 15:59 Intake Total 287 / 287 Output Total 450 / 450 300 / 300 Balance -163 / -163 -300 / -300 Weight 48 kg Consult Discharge Plan - Plan [facility]Primary Care Provider[facility] - <Thomas Sidhu S - Last Filed: 12/03/17 21:46> Date of Encounter: 12/03/17 All Systems: A 10-system review of systems was performed and is negative for pertinent findings except as documented above in the HPI. Physical Examination Vital Signs: Vital Signs, Last 4 Hours Temp Pulse Resp BP Pulse Ox 12/03/17 16:15 14 99/58 100 12/03/17 16:05 99.1 F 12/03/17 15:00 70 14 110/57 100 12/03/17 14:00 75 14 110/56 100 12/03/17 13:44 72 14 105/59 12/03/17 13:19 98.9 F Ventilator Settings Ventilator Settings: Ventilator Settings, Last 8 Hours Ventilator Mode VC+ Ventilator Mode VC+ Ventilator Mode VC+ Ventilator Mode VC+ Ventilator Mode VC+ Ventilator Mode VC+ Ventilator Mode VC+ Ventilator Mode VC+ Ventilator Mode VC+ Ventilator Mode VC+ Ventilator Tidal Volume 450 Setting Ventilator Tidal Volume 450 Setting Ventilator Tidal Volume 450 Setting Ventilator Tidal Volume 450 Setting Ventilator Tidal Volume 450 Setting Ventilator Tidal Volume 450 Setting Ventilator Tidal Volume 450 Setting Ventilator Tidal Volume 450 Setting Ventilator Tidal Volume 450 Setting Ventilator Tidal Volume 450 Setting Ventilator Respiratory Rate 14 Setting Ventilator Respiratory Rate 14 Setting Ventilator Respiratory Rate 14 Setting Ventilator Respiratory Rate 14 Setting Ventilator Respiratory Rate 14 Setting Ventilator Respiratory Rate 14 Setting Ventilator Respiratory Rate 14 Setting Ventilator Respiratory Rate 14 Setting Ventilator Respiratory Rate 14 Setting Ventilator Respiratory Rate 14 Setting Actual Respiratory Rate 14 Actual Respiratory Rate 14 Actual Respiratory Rate 14 Actual Respiratory Rate 14 Actual Respiratory Rate 14 Actual Respiratory Rate 14 Actual Respiratory Rate 14 Actual Respiratory Rate 14 Actual Respiratory Rate 14 Positive End Expiratory 5 Pressure Positive End Expiratory 5 Pressure Positive End Expiratory 5 Pressure Positive End Expiratory 5 Pressure Positive End Expiratory 5 Pressure Positive End Expiratory 5 Pressure Positive End Expiratory 5 Pressure Positive End Expiratory 5 Pressure Positive End Expiratory 5 Pressure Positive End Expiratory 5 Pressure Peak Inspiratory Airway 15 Pressure Peak Inspiratory Airway 18 Pressure Peak Inspiratory Airway 18 Pressure Peak Inspiratory Airway 18 Pressure Peak Inspiratory Airway 20 Pressure Peak Inspiratory Airway 18 Pressure Peak Inspiratory Airway 17 Pressure Peak Inspiratory Airway 13 Pressure Peak Inspiratory Airway 17 Pressure Results - Laboratory Findings CBC and BMP: 12/03/17 01:24 12/03/17 01:24 ABG ABG pH 7.32 pH Units (7.32-7.45) 12/03/17 07:46 ABG pCO2 65 mmHg (35-45) H 12/03/17 07:46 ABG pO2 143 mmHg (85-104) H 12/03/17 07:46 ABG O2 Saturation 99 % (95-98) H 12/03/17 07:46 PT/INR, D-dimer PT 9.5 Seconds (9.4-12.1) 12/03/17 01:24 Abnormal lab findings: Abnormal lab results WBC 16.2 K/mcL (4.3-11.1) H D 12/03/17 01:24 RBC 3.98 M/mcL (4.19-5.50) L 12/03/17 01:24 Hgb 12.7 g/dL (12.9-16.9) L 12/03/17 01:24 Hct 36.1 % (37.5-50.1) L 12/03/17 01:24 MPV 9.1 fL (9.4-12.4) L 12/03/17 01:24 Neutrophils # 14.9 K/mcL (1.6-8.9) H 12/03/17 01:24 Lymphocytes # 0.4 K/mcL (0.6-4.6) L 12/03/17 01:24 APTT 39.3 Seconds (26.0-36.0) H 12/02/17 20:25 ABG pCO2 65 mmHg (35-45) H 12/03/17 07:46 ABG pO2 143 mmHg (85-104) H 12/03/17 07:46 ABG HCO3 33 mEq/L (21-27) H 12/03/17 07:46 ABG Total CO2 35 mEq/L (20-26) H 12/03/17 07:46 ABG O2 Saturation 99 % (95-98) H 12/03/17 07:46 ABG Base Excess 6 mEq/L (-2 to 3) H 12/03/17 07:46 Sodium 133 mEq/L (136-145) L 12/03/17 01:24 Chloride 97 mEq/L (98-107) L 12/03/17 01:24 BUN 29 mg/dL (8-23) H 12/03/17 01:24 Creatinine 0.47 mg/dL (0.70-1.30) L 12/03/17 01:24 BUN/Creatinine Ratio 62 (6-26) H 12/03/17 01:24 Glucose 142 mg/dL (70-105) H 12/03/17 01:24 POC Glucose 209 (58-89) H 12/02/17 20:20 Serum Total Protein 5.9 g/dL (6.4-8.9) L 12/03/17 01:24 Globulin 2.2 g/dL (2.4-3.5) L 12/03/17 01:24 Urine Clarity Cloudy (Clear) A 12/02/17 20:41 Ur Specific Sneads 1.026 (1.010-1.025) H 12/02/17 20:41 Urine Glucose (UA) 500 mg/dL (Normal) H 12/02/17 20:41 Urine Blood Small (Negative) H 12/02/17 20:41 Ur Leukocyte Esterase Large (Negative) H 12/02/17 20:41 Urine Microscopic WBC TNTC per hpf (0-3) H 12/02/17 20:41 Ur Culture Indicated? YES (NO) A 12/02/17 20:41 - Clinical Findings Intake & Output: Intake & Output 12/03/17 12/03/17 12/03/17 07:59 15:59 23:59 Intake Total 287 / 287 1500 / 1500 Output Total 450 / 450 400 / 400 100 / 100 Balance -163 / -163 1100 / 1100 -100 / -100 Weight 48 kg - Attending Attestation I saw the patient with the resident agree with History and Physical exam findings. 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 Neurology consulted thinking of ALS Vs Myasthenia gravis -lab work pending NECK : No JVD appreciated br Pulmonary : Patient is hypoxic and hypercarbic on ventilator complicated by pneumonia most likely due to aspiration her MBS showed aspiration . Will cover with broad spectrum antibitoics tried SBT failed developed hypercapnia with decompensated PH worried he might be difficult extubation will give steroids and scheduled bronchodilators . If there is autoimmune disease like myasthenia steroids might help will need BIPAP on extubation . If he fails SBT tommorrow will get CT Chest . Cardiac : Hemodynamically stable , trended troponins , no evidence of ACS may the cardiac arrest primarily due to worsening respiratory failure lead to hypoxia and hypercarbia went into cardiac arrest will get ECHO . Nutrition/GI: Patient will be started on trophic feeds , PPI prophylaxis Renal : Labs reviewed Heme onc : Labs reviewed ID ; RUL infiltrate -broad spectrum antibiotics Musculo skeletal / skin issues : No acute issues Disposition : Critically ill Code status: Full Code Family/POA: Son Spent 45 minutes of Critical care in medical decision making in maintaining vital organ function.
[2017-12-03] MEDS: Vancomycin 1,000 MG in D5% in Water 250 ML IVPB SCH ×2 (09:25→23:20)
[2017-12-03] MEDS ORDERED: Albuterol 2.5 MG/3 ML NEBULIZER IH PRN (11:04)
[2017-12-03] MEDS: Ipratropium/Albuterol Neb 3 ML IH SCH ×3 (11:59→21:41)
--- NOTE | 2017-12-03 12:13 | Electrocardiograph Report ---
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
--- NOTE | 2017-12-03 12:15 | Electrocardiograph Report ---
[place] [id number] Test Date: 2017-12-02 Pat Name: Jerzy Schmidt Department: 104 Room: [facility] Gender: M Manager Marketing Communication: BRENDON : 1935 Requested By: Pedro Joseph Order Number: [id number] Reading MD: Jacob Apodaca DO Measurements Intervals [place] Rate: 76 P: 67 WV: 161 QRS: 77 QRSD: T: 68 QT: 403 QTc: 433 Interpretive Statements SINUS RHYTHM RIGHT BUNDLE BRANCH BLOCK Electronically Signed On 12-03-2017 12:14:18 EST by Jacob Apodaca DO
--- NOTE | 2017-12-03 14:19 | Neurology - Consult Note ---
<Dottie Rdz - Last Filed: 12/03/17 15:20> Date of Encounter: 12/03/17 Time of Encounter: 14:08 Assessment and Plan (1) Cardiac arrest Current Visit: Yes Status: Acute At this time, there does not appear to be any brainstem damage from cardiac arrest. Patient is alert, able to answer yes or no questions, and is fully able to follow simple commands. Head CT shows no acute abnormality, or vascular ischemic changes. etiology unclear at this time. possibilities include myasthenia gravis, ALS. Plan: continue to monitor further recommendations pending arrival of OR neurology records. MG panel pending History of Present Illness Chief complaint: s/p cardiac arrest HPI: Mr. Schmidt is a 82 year old male with past medical history of hypertension, hyperlipidemia, hypothyroidism, BPH. Patient arrived as a transfer from the OR , status post cardiac arrest. Reason for cardiac arrest is unknown at this time. He was transferred here for further workup. Patient is currently intubated, and most of history was obtained from patients son Georgi, who was sitting at the bedside. Patients son states that ever since last February, patients health has slowly been declining. At that time, he had suffered a fall. Ever since then, he has been having trouble with shortness of breath. He has had extensive workup for this including pulmonary function tests, and x- rays that have been unremarkable. He has also been in and out of the hospital for the past few months for problems with shortness of breath. Patient has also been experiencing weight loss of about 30 pounds since last February. He has also had issues with gait abnormalities, trouble with swallowing, trouble with hand eye coordination, and overall weakness. patient's son states that he does see a neurologist at the OR, and is currently having neurologic workup for suspected ALS. Because patient is intubated, review of systems could not be obtained. However, patient is alert and able to follow commands. Past Med Surg Social Fam HX - Past Medical History Medical history: hyperlipidemia, hypertension, thyroid disease - Social History Smoking Status: Unknown if ever smoked Alcohol use: unknown Drug use: unknown - Family History Mother History Unknown: Yes Medications and Allergies Acetaminophen [Tylenol] 1,000 mg PO TID PRN 12/02/17 [History] Calcium Carbonate/Vitamin D3 [Calcium 500-Vit D3 200 Tablet] 1 each PO BID 12/02 [History] Cholecalciferol (D-3) [Vitamin D] 2,000 unit PO DAILY 12/02/17 [History] Diclofenac Sodium [Voltaren] 2 gm TP QID PRN MDD 16 gm 12/02/17 [History] Duloxetine HCl [Cymbalta] 60 mg PO DAILY 12/02/17 [History] Finasteride [Proscar] 5 mg PO DAILY 12/02/17 [History] Lactose-Reduced Food [Ensure Plus] 1 bottle PO BID 12/02/17 [History] Levothyroxine [Synthroid] 75 mcg PO 0630 12/02/17 [History] Lidocaine Patch [Lidoderm 5% patch] 1 each TP DAILY 12/02/17 [History] Multivitamin-Min/Iron/FA/Vit K [Multi-Day Plus Minerals Tablet] 1 each PO DAILY 12/02/17 [History] Omeprazole [PriLOSEC] 20 mg PO DAILY 12/02/17 [History] Sennosides [Senna] 8.6 mg PO DAILY 12/02/17 [History] Tamsulosin [Flomax] 0.4 mg PO HS 12/02/17 [History] 3 Allergy/AdvReac Type Severity Reaction Status Date / Time Sulfa (Sulfonamide Allergy See Verified 12/02/17 20:46 Antibiotics) Comments ROS unobtainable: due to endotracheal tube All Systems: A 10-system review of systems was performed and is negative for pertinent findings except as documented above in the HPI. Physical Examination - Vital Signs Vital Signs: Initial Vital Signs Temp Pulse Resp BP Pulse Ox 0 F L 87 12 183/125 100 12/02/17 20:19 12/02/17 20:19 12/02/17 20:19 12/02/17 20:19 12/02/17 20:19 - Constitutional General appearance: comfortable, acutely ill, other (Patient is intubated and in soft restraints. He is a alert, and is able to nod or shake his head to answer questions, appears comfortable and in no acute distress. left eye ptosis present) - Neurologic Sensorimotor examination: intact Motor examination - right side: 01/26: deltoids, biceps, triceps, wrist flexion, wrist extension, firefighter, hip flexors, tibialis Anterior, quadriceps, toe extension (EHL), plantarflexion Motor examination - left side: 35: deltoids, biceps, triceps, wrist flexion, wrist extension, hip flexors, firefighter, quadriceps, tibialis Anterior, toe extension (EHL), plantarflexion Detailed sensory examination: intact Mental Status Examination: awake, alert, follows commands appropriately, answers questions appropriately Cranial nerve examination: PERRL, EOMI, visual march intact Results - Laboratory Findings CBC and BMP: 12/03/17 01:24 12/03/17 01:24 Abnormal lab findings: Abnormal lab results WBC 16.2 K/mcL (4.3-11.1) H D 12/03/17 01:24 RBC 3.98 M/mcL (4.19-5.50) L 12/03/17 01:24 Hgb 12.7 g/dL (12.9-16.9) L 12/03/17 01:24 Hct 36.1 % (37.5-50.1) L 12/03/17 01:24 MPV 9.1 fL (9.4-12.4) L 12/03/17 01:24 Neutrophils # 14.9 K/mcL (1.6-8.9) H 12/03/17 01:24 Lymphocytes # 0.4 K/mcL (0.6-4.6) L 12/03/17 01:24 APTT 39.3 Seconds (26.0-36.0) H 12/02/17 20:25 ABG pCO2 65 mmHg (35-45) H 12/03/17 07:46 ABG pO2 143 mmHg (85-104) H 12/03/17 07:46 ABG HCO3 33 mEq/L (21-27) H 12/03/17 07:46 ABG Total CO2 35 mEq/L (20-26) H 12/03/17 07:46 ABG O2 Saturation 99 % (95-98) H 12/03/17 07:46 ABG Base Excess 6 mEq/L (-2 to 3) H 12/03/17 07:46 Sodium 133 mEq/L (136-145) L 12/03/17 01:24 Chloride 97 mEq/L (98-107) L 12/03/17 01:24 BUN 29 mg/dL (8-23) H 12/03/17 01:24 Creatinine 0.47 mg/dL (0.70-1.30) L 12/03/17 01:24 BUN/Creatinine Ratio 62 (6-26) H 12/03/17 01:24 Glucose 142 mg/dL (70-105) H 12/03/17 01:24 POC Glucose 209 (58-89) H 12/02/17 20:20 Serum Total Protein 5.9 g/dL (6.4-8.9) L 12/03/17 01:24 Globulin 2.2 g/dL (2.4-3.5) L 12/03/17 01:24 Urine Clarity Cloudy (Clear) A 12/02/17 20:41 Ur Specific [place] 1.026 (1.010-1.025) H 12/02/17 20:41 Urine Glucose (UA) 500 mg/dL (Normal) H 12/02/17 20:41 Urine Blood Small (Negative) H 12/02/17 20:41 Ur Leukocyte Esterase Large (Negative) H 12/02/17 20:41 Urine Microscopic WBC TNTC per hpf (0-3) H 12/02/17 20:41 Ur Culture Indicated? YES (NO) A 12/02/17 20:41 Consult Discharge Plan - Plan Referrals: OR,PCP [Primary Care Provider] - <Joce Deshpande - Last Filed: 12/03/17 15:50> Date of Encounter: 12/03/17 Time of Encounter: 15:41 Assessment and Plan (1) Cardiac arrest Current Visit: Yes Status: Acute (2) Cardiac arrest Current Visit: Yes Status: Acute This patient was actually being worked up for generalized weakness and weight loss prior to admission. He apparently had a cardiopulmonary event at the [facility] and was transferred here for further assessment. At this time I see no gross abnormalities that might suggest anoxic brain injury. A better mental status assessment can be made upon extubation. He was under evaluation for motor neuron disease at another facility. I do believe that this is a reasonable differential to entertain. However if we are searching for unifying diagnosis would consider myasthenia gravis given the left ptosis and complaints of diplopia along with other bulbar weakness. We will check myasthenia gravis antibody panel. We will follow-up with him tomorrow. Critical care time spent with this gentleman including chart review discussing the case with ICU personnel discussing it with the family and coordinating care was 45 minutes. History of Present Illness HPI: Chart was reviewed, patient was seen and examined. Case was discussed with the neurology resident. I agree with her assessment as stated above. Further investigation finds that this gentleman has had difficulty with swallowing liquids and solids, also had difficulty with recurrent respiratory issues and pneumonia. Also note left ptosis. Patient answers positively when questioned about diplopia. In addition to ALS concern for myasthenia gravis. All Systems: A 10-system review of systems was performed and is negative for pertinent findings except as documented above in the HPI. Physical Examination - Vital Signs Vital Signs: Initial Vital Signs Temp Pulse Resp BP Pulse Ox 0 F L 87 12 183/125 100 12/02/17 20:19 12/02/17 20:19 12/02/17 20:19 12/02/17 20:19 12/02/17 20:19 - Exam Exam: Neurologic examination finds the following. Cerebral functions-patient is intubated however is awake and alert. He is able to answer questions by nodding yes or no. He follows simple commands. He is not encephalopathic or lethargic. However intense assessment of his mental status is difficult while he is intubated. Cranial nerves-there is left ptosis present, this fatigues upon prolonged upward gaze. Gross extraocular motility is intact. Pupils are equal and reactive symmetrically. He is intubated and therefore cannot really identify whether or not there is any facial asymmetry. He minimally assists the ventilator. Motor exam finds that he is weak throughout however he is in 4-point restraints. He squeezes equally firefighter strength bilaterally and wiggles the toes symmetrically. No involuntary movements are identified. He does appear somewhat cachectic. Sensory exam finds proprioception is intact he can identify whether or not his toes up or down. Deep tendon reflexes are 1 symmetrically in the brachioradialis 1 symmetrically in the biceps absent at the patellar and Achilles. No long tract signs are present. No clonus is present. Results - Laboratory Findings CBC and BMP: 12/03/17 01:24 12/03/17 01:24 Abnormal lab findings: Abnormal lab results WBC 16.2 K/mcL (4.3-11.1) H D 12/03/17 01:24 RBC 3.98 M/mcL (4.19-5.50) L 12/03/17 01:24 Hgb 12.7 g/dL (12.9-16.9) L 12/03/17 01:24 Hct 36.1 % (37.5-50.1) L 12/03/17 01:24 MPV 9.1 fL (9.4-12.4) L 12/03/17 01:24 Neutrophils # 14.9 K/mcL (1.6-8.9) H 12/03/17 01:24 Lymphocytes # 0.4 K/mcL (0.6-4.6) L 12/03/17 01:24 APTT 39.3 Seconds (26.0-36.0) H 12/02/17 20:25 ABG pCO2 65 mmHg (35-45) H 12/03/17 07:46 ABG pO2 143 mmHg (85-104) H 12/03/17 07:46 ABG HCO3 33 mEq/L (21-27) H 12/03/17 07:46 ABG Total CO2 35 mEq/L (20-26) H 12/03/17 07:46 ABG O2 Saturation 99 % (95-98) H 12/03/17 07:46 ABG Base Excess 6 mEq/L (-2 to 3) H 12/03/17 07:46 Sodium 133 mEq/L (136-145) L 12/03/17 01:24 Chloride 97 mEq/L (98-107) L 12/03/17 01:24 BUN 29 mg/dL (8-23) H 12/03/17 01:24 Creatinine 0.47 mg/dL (0.70-1.30) L 12/03/17 01:24 BUN/Creatinine Ratio 62 (6-26) H 12/03/17 01:24 Glucose 142 mg/dL (70-105) H 12/03/17 01:24 POC Glucose 209 (58-89) H 12/02/17 20:20 Serum Total Protein 5.9 g/dL (6.4-8.9) L 12/03/17 01:24 Globulin 2.2 g/dL (2.4-3.5) L 12/03/17 01:24 Urine Clarity Cloudy (Clear) A 12/02/17 20:41 Ur Specific [place] 1.026 (1.010-1.025) H 12/02/17 20:41 Urine Glucose (UA) 500 mg/dL (Normal) H 12/02/17 20:41 Urine Blood Small (Negative) H 12/02/17 20:41 Ur Leukocyte Esterase Large (Negative) H 12/02/17 20:41 Urine Microscopic WBC TNTC per hpf (0-3) H 12/02/17 20:41 Ur Culture Indicated? YES (NO) A 12/02/17 20:41
[2017-12-03] MEDS: methylPREDNISolone 125 MG/2 ML VIAL IVP SCH ×2 (15:51→23:20)
[2017-12-03] MEDS ORDERED: Haloperidol Lactate 5 MG/ML VIAL IVP PRN (16:07)
[2017-12-04] MEDS: Ipratropium/Albuterol Neb 3 ML IH SCH ×4 (03:26→21:29)
[2017-12-04] MEDS: Lacri-Lube 3.5 GM TUBE BOTH EYES SCH ×6 (04:18→23:20)
[2017-12-04 05:18] LABS: BUN/Creatinine Ratio 43 (6-26); Blood Urea Nitrogen 22 mg/dL (8-23); Calcium 8.2 mg/dL (8.6-10.3); Carbon Dioxide 28 mEq/L (23-29); Chloride 106 mEq/L (98-107); Glucose 139 mg/dL (70-105); Osmolality,Calculated 290 (280-300); Potassium 3.9 mEq/L (3.5-5.1); Sodium 137 mEq/L (136-145); eGFR For African Americans > 60 (> 60); eGFR For Non-African Americans > 60 (> 60)
[2017-12-04 05:30] LABS: Hematocrit 31.3 % (37.5-50.1); Immature Granulocytes % 0.2 % (0-4); Lymphocytes # 0.2 K/mcL (0.6-4.6); Lymphocytes % 1.9 %; Mean Corpuscular HGB Conc 33.5 g/dL (31.6-35.5); Mean Corpuscular Hemoglobin 31.1 pg (28.0-33.3); Mean Corpuscular Volume 92.6 fL (83.0-100.0); Mean Platelet Volume 9.7 fL (9.4-12.4); Monocytes # 0.3 K/mcL (0.0-1.3); Monocytes % 3.4 %; Neutrophils # 7.6 K/mcL (1.6-8.9); Platelet Count 198 K/mcL (140-400); Red Blood Count 3.38 M/mcL (4.19-5.50); Red Cell Distribution Width 12.7 % (11.5-14.5); Segmented Neutrophils % 94.5 %
[2017-12-04] MEDS: 0.9 % Sodium Chloride 1,000 ML IVC SCH (05:40)
[2017-12-04 05:42] LABS: Hemoglobin 10.5 g/dL (12.9-16.9)
[2017-12-04 05:46] LABS: ABG Base Excess 3 mEq/L (-2 to 3); ABG HCO3 29 mEq/L (21-27); ABG Oxygen Saturation 94 % (95-98); ABG PCO2 48 mmHg (35-45); ABG PH 7.39 pH Units (7.32-7.45); ABG PO2 73 mmHg (85-104); ABG TCO2 30 mEq/L (20-26); Blood Gas Modality PRVC; Blood Gas PEEP 5 cm H2O; Blood Gas Respiration Rate 14; Blood Gas VT 450 cc
[2017-12-04] MEDS: Insulin LISPRO 300 UNITS/3 ML VIAL SQ SCH ×4 (06:15→23:20)
[2017-12-04 06:20] LABS: Platelet Estimate Normal (Normal)
[2017-12-04] MEDS: *HR* Enoxaparin 40 MG/0.4 ML SYRINGE SQ SCH (06:58)
[2017-12-04] MEDS: Piperacillin/Tazobactam 3.375 GM/200 ML BAG IVPB SCH ×3 (07:00→22:21)
[2017-12-04] MEDS ORDERED: Dexmedetomidine HCl 400 MCG/100 ML MLS IVC ONE (07:32)
[2017-12-04] MEDS ORDERED: Aminoglycoside Consult 1 EACH MC ONE (08:20)
[2017-12-04] MEDS: Dexmedetomidine HCl 400 MCG/100 ML MLS IVC SCH ×2 (08:36→16:41)
[2017-12-04] MEDS: Chlorhexidine Rinse 15 ML MOUTHWASH MM SCH ×2 (08:38→19:34)
[2017-12-04] MEDS: Pantoprazole 40 MG VIAL IVPB SCH (08:38)
[2017-12-04] MEDS: methylPREDNISolone 125 MG/2 ML VIAL IVP SCH ×3 (08:38→23:22)
--- NOTE | 2017-12-04 09:55 | Pulmonology Progress Note ---
Date of Encounter: 12/04/17 Time of Encounter: 07:30 Assessment and Plan (1) Acute respiratory failure Current Visit: Yes Status: Acute tried SBT patient failed today . Qualifiers: Respiratory failure complication: hypoxia and hypercapnia Qualified Code(s) : J96.01 - Acute respiratory failure with hypoxia; J96.02 - Acute respiratory failure with hypercapnia; J96.02 - Acute respiratory failure with hypercapnia; J96.02 - Acute respiratory failure with hypercapnia (2) Cardiac arrest Current Visit: Yes Status: Acute Cardiac arrest most likely secondary to aspiration pneumonia and hypoxic respiratory failure (3) PNA (pneumonia) Current Visit: Yes Status: Acute Patient is on broad spectrum antibiotics will be descalating soon. 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 (5) Counseling regarding advanced care planning and goals of care Current Visit: Yes Status: Acute and My self spoke with family in two separate settings son and daughter -in law said his father will want to be connected to life support if he has incurable disease. he doesnt want to be kept like this patient nodded his head . Family members is going to get together probable comfort measures 24- 48 for now will change code status DNRCCA arrest . Patient son agrees with code status change. Subjective Principal diagnosis: acute respiratory failure secondary to pneumonia Interval history: Patient came post cardiac arrest from [place] [facility] due to aspiration pneumonia and hypoxia secondary to progressive bulbar weakness. Objective PUL Vital signs: Last Vital Signs Temp 98.4 F 12/04/17 07:49 Pulse 96 12/04/17 09:00 Resp 17 12/04/17 09:40 BP 160/86 12/04/17 09:00 Pulse Ox 97 12/04/17 09:40 Effort: mildly labored, other (using accessory muscles of respiration) Auscultation: bilateral: diminished breath sounds unable to assess due to mental status other (not able to do ascertain) Ventilator Settings Ventilator Settings: Ventilator Settings, Last 8 Hours Ventilator Mode VC+ Ventilator Mode VC+ Ventilator Mode VC+ Ventilator Mode VC+ Ventilator Mode VC+ Ventilator Mode VC+ Ventilator Mode VC+ Ventilator Tidal Volume 450 Setting Ventilator Tidal Volume 450 Setting Ventilator Tidal Volume 450 Setting Ventilator Tidal Volume 450 Setting Ventilator Tidal Volume 450 Setting Ventilator Tidal Volume 450 Setting Ventilator Tidal Volume 450 Setting Ventilator Respiratory Rate 14 Setting Ventilator Respiratory Rate 14 Setting Ventilator Respiratory Rate 14 Setting Ventilator Respiratory Rate 14 Setting Ventilator Respiratory Rate 14 Setting Ventilator Respiratory Rate 14 Setting Ventilator Respiratory Rate 14 Setting Actual Respiratory Rate 17 Actual Respiratory Rate 25 Actual Respiratory Rate 19 Actual Respiratory Rate 15 Actual Respiratory Rate 14 Actual Respiratory Rate 17 Positive End Expiratory 5 Pressure Positive End Expiratory 5 Pressure Positive End Expiratory 5 Pressure Positive End Expiratory 5 Pressure Positive End Expiratory 5 Pressure Positive End Expiratory 5 Pressure Positive End Expiratory 5 Pressure Peak Inspiratory Airway 13 Pressure Peak Inspiratory Airway 17 Pressure Peak Inspiratory Airway 13 Pressure Peak Inspiratory Airway 17 Pressure Peak Inspiratory Airway 18 Pressure Peak Inspiratory Airway 14 Pressure Results - Laboratory Findings CBC and BMP: 12/04/17 04:27 12/04/17 04:27 ABG ABG pH 7.39 pH Units (7.32-7.45) 12/04/17 05:42 ABG pCO2 48 mmHg (35-45) H 12/04/17 05:42 ABG pO2 73 mmHg (85-104) L 12/04/17 05:42 ABG O2 Saturation 94 % (95-98) L 12/04/17 05:42 PT/INR, D-dimer PT 9.5 Seconds (9.4-12.1) 12/03/17 01:24 Abnormal lab findings: Abnormal lab results RBC 3.38 M/mcL (4.19-5.50) L 12/04/17 04:27 Hgb 10.5 g/dL (12.9-16.9) L D 12/04/17 04:27 Hct 31.3 % (37.5-50.1) L 12/04/17 04:27 Lymphocytes # 0.2 K/mcL (0.6-4.6) L 12/04/17 04:27 APTT 39.3 Seconds (26.0-36.0) H 12/02/17 20:25 ABG pCO2 48 mmHg (35-45) H 12/04/17 05:42 ABG pO2 73 mmHg (85-104) L 12/04/17 05:42 ABG HCO3 29 mEq/L (21-27) H 12/04/17 05:42 ABG Total CO2 30 mEq/L (20-26) H 12/04/17 05:42 ABG O2 Saturation 94 % (95-98) L 12/04/17 05:42 Creatinine 0.51 mg/dL (0.70-1.30) L 12/04/17 04:27 BUN/Creatinine Ratio 43 (6-26) H 12/04/17 04:27 Glucose 139 mg/dL (70-105) H 12/04/17 04:27 POC Glucose 153 (58-89) H 12/03/17 23:42 Calcium 8.2 mg/dL (8.6-10.3) L 12/04/17 04:27 Serum Total Protein 5.9 g/dL (6.4-8.9) L 12/03/17 01:24 Globulin 2.2 g/dL (2.4-3.5) L 12/03/17 01:24 Urine Clarity Cloudy (Clear) A 12/02/17 20:41 Ur Specific [place] 1.026 (1.010-1.025) H 12/02/17 20:41 Urine Glucose (UA) 500 mg/dL (Normal) H 12/02/17 20:41 Urine Blood Small (Negative) H 12/02/17 20:41 Ur Leukocyte Esterase Large (Negative) H 12/02/17 20:41 Urine Microscopic WBC TNTC per hpf (0-3) H 12/02/17 20:41 Ur Culture Indicated? YES (NO) A 12/02/17 20:41 - Clinical Findings Intake & Output: Intake & Output 12/03/17 12/04/17 12/04/17 23:59 07:59 15:59 Intake Total 1200 / 1200 1855 / 1855 Output Total 300 / 300 775 / 775 Balance 900 / 900 1080 / 1080 Weight 55.3 kg - VTE Documentation of Mechanical Device: Intermittent pneumatic compression device Consult Discharge Plan - Plan [facility]errals: [facility]Primary Care Provider[facility] -
[2017-12-04] MEDS: Vancomycin 1,000 MG in D5% in Water 250 ML IVPB SCH ×3 (10:42→22:21)
--- NOTE | 2017-12-04 13:43 | Palliative - Consult Note ---
Date of Encounter: 12/04/17 Time of Encounter: 13:00 - Assessment and Plan (1) PNA (pneumonia) Current Visit: Yes Status: Acute Assessment and plan: Continues treatment with antibiotic therapy, and respiratory support. Qualifiers: Pneumonia type: due to unspecified organism Laterality: right Lung location: upper lobe of lung Qualified Code(s): J18.1 - Lobar pneumonia, unspecified organism (2) Counseling regarding advanced care planning and goals of care Current Visit: Yes Status: Acute Assessment and plan: D/W son Georgi (POA) at bedside. Patient adv directives (living will and POA) are noted in the record sent from the [facility], and Georgi is noted as power of privacy attorney for healthcare. Upon history/social information, pt lived alone prior to [facility] admission. Son states that pt would be at home Fri-, and visit girlfriend on Friday and the weekend. Still drove and cared for himself. Patient has been under in medical care at [facility], and here after cardiac arrest. He is not service connected. Discussed briefly goals of care, however, more information is needed r/t diagnosis/prognosis prior to making crucial decisions. Georgi did know that pt would not want life prolonging measures if it appears he would not make a meaningful recovery. He verbalized that independence and quality of life mean a lot to the patient. Both pt and son understand that there will most likely be difficult decisions to make once diagnosis is made. Palliative team will follow closely. (3) Cardiac arrest Current Visit: Yes Status: Acute Palliative-CN HPI - Data of Consult Consult date: 12/04/17 Requesting Physician: August Lopez MD Primary Care Provider: PCP [facility] - Consult Narrative History of present illness: Mr. Schmidt is a 82 year old male who was in [facility], had cardiac arrest and was transferred to [place] intensive care unit for ongoing care. He is intubated, so unable to provide any history. Son Georgi is at bedside providing information. Describes that his father began having health issues last spring ( February/march). Until that time, he was independent and cared for his home/yard, drove, and exercised regularly. States he had a fall last spring, and began having shortness of breath. Son states he began with multiple physician visits , and multiple testing. States they thought cardiac at first, then pulmonary issues, but all test came back negative. [facility] was beginning neurological workup when he apparently had aspiration event and came in with arrest. Neurology has been consulted here and Dr. Joce Deshpande following patient. Awaiting records to arrive from [facility], and myathenia gravis panel here. On my visit, he is alert and answers questions with shaking head yes/no. Son Georgi at bedside. By nodding of head, pt denies pain or anxiety. Acknowledges he is comfortable. Continues with ventilator support. Receiving enteral feeding as well. CC: August Lopez MD Past Med Surg Social Fam HX - Past Medical History Medical history: hyperlipidemia, hypertension, thyroid disease - Social History Smoking Status: Unknown if ever smoked Alcohol use: unknown Drug use: unknown - Family History Mother History Unknown: Yes Medications and Allergies Acetaminophen [Tylenol] 1,000 mg PO TID PRN 12/02/17 [History] Calcium Carbonate/Vitamin D3 [Calcium 500-Vit D3 200 Tablet] 1 each PO BID 12/02 [History] Cholecalciferol (D-3) [Vitamin D] 2,000 unit PO DAILY 12/02/17 [History] Diclofenac Sodium [Voltaren] 2 gm TP QID PRN MDD 16 gm 12/02/17 [History] Duloxetine HCl [Cymbalta] 60 mg PO DAILY 12/02/17 [History] Finasteride [Proscar] 5 mg PO DAILY 12/02/17 [History] Lactose-Reduced Food [Ensure Plus] 1 bottle PO BID 12/02/17 [History] Levothyroxine [Synthroid] 75 mcg PO 0630 12/02/17 [History] Lidocaine Patch [Lidoderm 5% patch] 1 each TP DAILY 12/02/17 [History] Multivitamin-Min/Iron/FA/Vit K [Multi-Day Plus Minerals Tablet] 1 each PO DAILY 12/02/17 [History] Omeprazole [PriLOSEC] 20 mg PO DAILY 12/02/17 [History] Sennosides [Senna] 8.6 mg PO DAILY 12/02/17 [History] Tamsulosin [Flomax] 0.4 mg PO HS 12/02/17 [History] 3 Allergy/AdvReac Type Severity Reaction Status Date / Time Sulfa (Sulfonamide Allergy See Verified 12/02/17 20:46 Antibiotics) Comments Palliative Care-Exam - Constitutional Vitals: Temp Pulse Resp BP Pulse Ox 97.7 F 96 17 138/64 94 12/04/17 12:00 12/04/17 12:31 12/04/17 12:00 12/04/17 11:00 12/04/17 12:00 General appearance: Present: no acute distress - Head Head Exam: Present: normal inspection, normocephalic - Eye Eye exam: Present: normal appearance, PERRL - Respiratory Respiratory exam: Present: decreased breath sounds, CTAB - Cardiovascular Cardiovascular exam: Present: +S1, +S2 - GI/Abdominal Exam GI/Abdominal exam: Present: normal bowel sounds, soft - Catheter Type: Urethral (Malik) - Extremities Exam Extremities exam: Present: normal capillary refill, normal inspection - Neurological Exam Neurological exam: Present: alert Additional comments: Able to communicate and shake head yes/no to questions while on vent. Writing difficult to interpret at times. Follows commands. - Skin Skin exam: Present: dry, pallor, warm Internal Medicine - CN: Reslt - Labs CBC & Chem 7: 12/04/17 04:27 12/04/17 04:27 Labs: Short CBC 12/04/17 Range/Units 04:27 WBC 8.0 D (4.3-11.1) K/mcL Hgb 10.5 L D (12.9-16.9) g/dL Hct 31.3 L (37.5-50.1) % Plt Count 198 (140-400) K/mcL Neutrophils # 7.6 (1.6-8.9) K/mcL BMP 12/04/17 04:27 Sodium 137 Potassium 3.9 Chloride 106 Carbon Dioxide 28 BUN 22 Creatinine 0.51 L Glucose 139 H Calcium 8.2 L - ABG Interpretation ABG results: ABG ABG pH 7.39 pH Units (7.32-7.45) 12/04/17 05:42 ABG pCO2 48 mmHg (35-45) H 12/04/17 05:42 ABG pO2 73 mmHg (85-104) L 12/04/17 05:42 ABG O2 Saturation 94 % (95-98) L 12/04/17 05:42 PT/INR, D-dimer PT 9.5 Seconds (9.4-12.1) 12/03/17 01:24 - Impressions Impressions Echocardiogram 12/04/17 21:40 Impressions: LVEF 65%. Indeterminate diastolic function. Dilated RV with normal function. Mild tricuspid regurgitation. Borderline pulmonary hypertension. Left Ventricular Wall Motion: Rest Echo Findings The mid inferior lateral and basal inferior lateral healy were not visualized. All other wall segments showed normal motion. Findings: Study Quality * Technically adequate exam. ECG Findings * Sinus tachycardia. Left Ventricle * LVEF 65%. * Normal LV chamber size, wall thickness and function. * Indeterminate diastolic function. Right Ventricle * Dilated RV with normal function. Left Atrium * Normal left atrial size. Right Atrium * Normal right atrial size. Aortic Valve * No aortic regurgitation. * Trileaflet aortic valve. * No aortic stenosis. Mitral Valve * No mitral regurgitation. * Normal mitral valve structure. * No mitral stenosis. Tricuspid Valve * Tricuspid valve not well visualized. * Mild tricuspid regurgitation. * Estimated RA pressure is 3 mmHg. * Borderline pulmonary hypertension. * Estimated RVSP is 35 mmHg. Pulmonic Valve * Pulmonic valve is not well visualized. * No pulmonic stenosis. * No pulmonic regurgitation. Pulmonary Artery * Pulmonary artery not well visualized. Aorta * Normally sized aortic root. * Ascending aorta is not well visualized. Pericardium * There is no pericardial effusion present. Interatrial Septum * No evidence of PFO by color Doppler. IVC * The IVC is not dilated. Consult Discharge Plan - Plan [facility]errals: [facility] [Primary Care Provider] - Palliative Quality Palliative Quality: Screen for Code Status: Yes, Screen for Goals of Care: Yes, Screen for Pain: Yes, If Pain Regimen Started, Initiate Bowel Regimen: NA, Screen for Nausea/Vomitting: Yes
[2017-12-04] MEDS: amLODIPine 5 MG TABLET PO SCH (13:52)
--- NOTE | 2017-12-04 15:26 | Neurology Progress Note ---
Date of Encounter: 12/04/17 Time of Encounter: 15:19 Assessment and Plan (1) Cardiac arrest Current Visit: Yes Status: Acute (2) Cardiac arrest Current Visit: Yes Status: Acute (3) Motor neuron disease, unspecified Current Visit: Yes Status: Acute This unfortunate gentleman has experienced progressive painless weakness since February 2017. He also has bulbar signs including dysphagia, and has had some dyspnea. He is awake and alert although still on the ventilator. Attempts to wean him today were unsuccessful. 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 There is acute or chronic denervation in the extremities. At this point I have made the patient and the family is aware of my expectations. Certainly they will require time to process matters and make decisions. Unfortunately however with such diffuse bulbar involvement is ultimate prognosis is poor, and extubation may be very difficult. Critical care time spent today was greater than 50 minutes which included counseling and coordinating care. I will reevaluate him tomorrow. Subjective Interval history: The chart was reviewed, the patient was seen and examined. Mental status remains intact. However from a clinical perspective he has failed attempts to wean him off the ventilator. He is currently using the accessory muscles of respiration when breathing. He has unfortunately had a protracted course of painless weakness progressive since February of last year. He has had significant dysphagia along with breathing difficulties. Today we received records from the [facility] which included an EMG report. She was just completed on December 02, 2017. The EMG reveals diffuse electromyographic evidence of acute or chronic denervation in 3 extremities. Clinical interpretation of the electromyographer was concerning for motor neuron disease. Clinically I can identify fasciculations in both upper and lower extremities as well as in the chest muscles. He denies numbness and tingling of the upper or lower extremities. Extraocular motility remains intact. The left ptosis remains perhaps it is physiologic. We also received a CD-ROM MRI of the cervical spine completed at the [facility]. I will send it to radiology for to be imported into our system. Objective - Constitutional Vitals: Temp Pulse Resp BP Pulse Ox 97.7 F 74 16 165/78 98 12/04/17 12:00 12/04/17 14:00 12/04/17 14:00 12/04/17 14:00 12/04/17 14:00 - Neurological Exam Sensorimotor examination: Present: intact Motor examination - right side: 3: deltoids, biceps, triceps, wrist flexion, wrist extension, e commerce analyst, hip flexors, tibialis Anterior, quadriceps, toe extension (EHL), plantarflexion Motor examination - left side: 3: deltoids, biceps, triceps, wrist flexion, wrist extension, hip flexors, e commerce analyst, quadriceps, tibialis Anterior, toe extension (EHL), plantarflexion Sensation intact: Present: intact Reflexes: Biceps: 1+, Triceps: 1+, Brachioradialis: 2+, Patella: 0, Achilles: 0 Mental Status Examination: Present: awake, alert, oriented to person, oriented to place, follows commands appropriately, answers questions appropriately, no agnosia, no aphasia, no aproxia Cranial nerve examination: Present: PERRL, EOMI, visual march intact, corneal reflexes brisk symmetrically, sensory to face intact, mastication intact, gag diminished. Absent: no dysarthria (intubated, unable to speak.) Cranial Nerve Exam: ptosis: Left - VTE Documentation of Mechanical Device: Intermittent pneumatic compression device Results - Laboratory Findings CBC and BMP: 12/04/17 04:27 12/04/17 04:27 Abnormal lab findings: Abnormal lab results RBC 3.38 M/mcL (4.19-5.50) L 12/04/17 04:27 Hgb 10.5 g/dL (12.9-16.9) L D 12/04/17 04:27 Hct 31.3 % (37.5-50.1) L 12/04/17 04:27 Lymphocytes # 0.2 K/mcL (0.6-4.6) L 12/04/17 04:27 APTT 39.3 Seconds (26.0-36.0) H 12/02/17 20:25 ABG pCO2 48 mmHg (35-45) H 12/04/17 05:42 ABG pO2 73 mmHg (85-104) L 12/04/17 05:42 ABG HCO3 29 mEq/L (21-27) H 12/04/17 05:42 ABG Total CO2 30 mEq/L (20-26) H 12/04/17 05:42 ABG O2 Saturation 94 % (95-98) L 12/04/17 05:42 Creatinine 0.51 mg/dL (0.70-1.30) L 12/04/17 04:27 BUN/Creatinine Ratio 43 (6-26) H 12/04/17 04:27 Glucose 139 mg/dL (70-105) H 12/04/17 04:27 POC Glucose 153 (58-89) H 12/03/17 23:42 Calcium 8.2 mg/dL (8.6-10.3) L 12/04/17 04:27 Serum Total Protein 5.9 g/dL (6.4-8.9) L 12/03/17 01:24 Globulin 2.2 g/dL (2.4-3.5) L 12/03/17 01:24 Urine Clarity Cloudy (Clear) A 12/02/17 20:41 Ur Specific [place] 1.026 (1.010-1.025) H 12/02/17 20:41 Urine Glucose (UA) 500 mg/dL (Normal) H 12/02/17 20:41 Urine Blood Small (Negative) H 12/02/17 20:41 Ur Leukocyte Esterase Large (Negative) H 12/02/17 20:41 Urine Microscopic WBC TNTC per hpf (0-3) H 12/02/17 20:41 Ur Culture Indicated? YES (NO) A 12/02/17 20:41 Consult Discharge Plan - Plan [facility]errals: [facility] [Primary Care Provider] -
--- NOTE | 2017-12-04 16:08 | Event Note ---
Date of Encounter: 12/04/17 Time of Encounter: 16:00 Dr. Joce Deshpande in and explained to family that after [facility] testing and clinical exam, confirms finding for Bulbar ALS. Met with son and daughter and law to discuss, pt primary nurse Emerald Hatch also at bedside. They do not desire transfer to [place]. They know that father's wishes would be not to prolong suffering for incurable illness. Diagnosis discuss with pt who nodded acknowledgement. He also acknowledged again he does not want longterm ventilatory support. Son to reach out to other family members to inform them of findings. Most likely will desire to compassionately extubate over the next 24-48 hours and transition to comfort care.
[2017-12-05] MEDS: Dexmedetomidine HCl 400 MCG/100 ML MLS IVC SCH ×4 (00:17→18:36)
[2017-12-05] MEDS: Lacri-Lube 3.5 GM TUBE BOTH EYES SCH ×5 (03:18→19:10)
[2017-12-05] MEDS: Ipratropium/Albuterol Neb 3 ML IH SCH ×4 (03:28→21:28)
[2017-12-05 03:39] LABS: ABG Base Excess 5 mEq/L (-2 to 3); ABG HCO3 31 mEq/L (21-27); ABG Oxygen Saturation 92 % (95-98); ABG PCO2 53 mmHg (35-45); ABG PH 7.38 pH Units (7.32-7.45); ABG PO2 67 mmHg (85-104); ABG TCO2 33 mEq/L (20-26); Blood Gas Modality VC; Blood Gas PEEP 5 cm H2O; Blood Gas Respiration Rate 14; Blood Gas VT 450 cc
[2017-12-05 04:17] LABS: Hematocrit 30.8 % (37.5-50.1); Hemoglobin 10.8 g/dL (12.9-16.9); Immature Granulocytes % 0.4 % (0-4); Lymphocytes # 0.1 K/mcL (0.6-4.6); Lymphocytes % 1.5 %; Mean Corpuscular HGB Conc 35.1 g/dL (31.6-35.5); Mean Corpuscular Hemoglobin 32.7 pg (28.0-33.3); Mean Corpuscular Volume 93.3 fL (83.0-100.0); Mean Platelet Volume 9.4 fL (9.4-12.4); Neutrophils # 6.4 K/mcL (1.6-8.9); Platelet Count 180 K/mcL (140-400); Red Cell Distribution Width 12.8 % (11.5-14.5); Segmented Neutrophils % 93.1 %
[2017-12-05 04:29] LABS: Monocytes # 0.4 K/mcL (0.0-1.3)
[2017-12-05 04:33] LABS: Blood Urea Nitrogen 21 mg/dL (8-23); Carbon Dioxide 30 mEq/L (23-29); Chloride 104 mEq/L (98-107); Potassium 3.8 mEq/L (3.5-5.1); Sodium 138 mEq/L (136-145)
[2017-12-05 04:34] LABS: BUN/Creatinine Ratio 44 (6-26); Calcium 8.6 mg/dL (8.6-10.3); Glucose 170 mg/dL (70-105); Osmolality,Calculated 293 (280-300); eGFR For African Americans > 60 (> 60); eGFR For Non-African Americans > 60 (> 60)
[2017-12-05 04:51] LABS: Platelet Estimate Normal (Normal)
[2017-12-05] MEDS: Piperacillin/Tazobactam 3.375 GM/200 ML BAG IVPB SCH ×3 (05:49→23:06)
[2017-12-05] MEDS: Insulin LISPRO 300 UNITS/3 ML VIAL SQ SCH ×4 (05:49→23:07)
[2017-12-05] MEDS: *HR* Enoxaparin 40 MG/0.4 ML SYRINGE SQ SCH (05:49)
--- NOTE | 2017-12-05 07:41 | Palliative Progress Note ---
<KobeMandieTom Gabriel - Last Filed: 12/05/17 08:34> Date of Encounter: 12/05/17 Time of Encounter: 07:38 - Assessment and plan (1) Goals of care, counseling/discussion Current Visit: Yes Status: Acute Assessment and plan: Patient able to nod to yes and no questions and fingerspells on hard surface to communicate. Patient comfortable on ventilator. Consistently nods no to feeding tube and to trach and shelter ventilator which is consistent with conversations with son this morning over the phone and consistent with communications yesterday with family. POA: Georgi (son) Previously under [place] inpatient medical care, he is not service connected Code status: DNR-CCA No pain, no vomiting, no nausea, no anxiety. Son plans to visit around 11:30am today. 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 Patient nods yes and no to questions. Reports being comfortable, no anxiety, no pain. 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 [employer] team has mentioned he failed breathing trials twice since yesterday, reports very slow and labored breathing with CPAP. Communication: PATIENT FINGERSPELLS WORDS ON A HARD SURFACE, is unable to point to letters. Fingerspelled, "Call Son Now" Spoke with son 07:45am, patient has expressed he did not want a feeding tub and does not want shelter vent. Son says he will be at bedside about 11:30am this morning. - Constitutional Vitals: Abnormal lab results RBC 3.30 M/mcL (4.19-5.50) L 12/05/17 03:57 Hgb 10.8 g/dL (12.9-16.9) L 12/05/17 03:57 Hct 30.8 % (37.5-50.1) L 12/05/17 03:57 Lymphocytes # 0.1 K/mcL (0.6-4.6) L 12/05/17 03:57 APTT 39.3 Seconds (26.0-36.0) H 12/02/17 20:25 ABG pCO2 53 mmHg (35-45) H 12/05/17 03:36 ABG pO2 67 mmHg (85-104) L 12/05/17 03:36 ABG HCO3 31 mEq/L (21-27) H 12/05/17 03:36 ABG Total CO2 33 mEq/L (20-26) H 12/05/17 03:36 ABG O2 Saturation 92 % (95-98) L 12/05/17 03:36 ABG Base Excess 5 mEq/L (-2 to 3) H 12/05/17 03:36 Carbon Dioxide 30 mEq/L (23-29) H 12/05/17 03:57 Creatinine 0.48 mg/dL (0.70-1.30) L 12/05/17 03:57 BUN/Creatinine Ratio 44 (6-26) H 12/05/17 03:57 Glucose 170 mg/dL (70-105) H 12/05/17 03:57 POC Glucose 228 (58-89) H 12/04/17 23:15 Serum Total Protein 5.9 g/dL (6.4-8.9) L 12/03/17 01:24 Globulin 2.2 g/dL (2.4-3.5) L 12/03/17 01:24 Urine Clarity Cloudy (Clear) A 12/02/17 20:41 Ur Specific [place] 1.026 (1.010-1.025) H 12/02/17 20:41 Urine Glucose (UA) 500 mg/dL (Normal) H 12/02/17 20:41 Urine Blood Small (Negative) H 12/02/17 20:41 Ur Leukocyte Esterase Large (Negative) H 12/02/17 20:41 Urine Microscopic WBC TNTC per hpf (0-3) H 12/02/17 20:41 Ur Culture Indicated? YES (NO) A 12/02/17 20:41 General appearance: Present: thin Exam: frustrated with communication difficulties, comfortable on ventilator - Head Head exam: Present: atraumatic, normal inspection, normocephalic - Eye Eye exam: Present: EOMI, PERRL - ENT ENT exam: Present: mucous membranes moist - Neck Neck exam: Present: normal inspection. Absent: tenderness - Respiratory Respiratory exam: Present: CTAB. Absent: rales, rhonchi, wheezes - Cardiovascular Cardiovascular exam: Present: RRR, +S1, +S2 - GI/Abdominal GI/Abdominal exam: Present: normal bowel sounds, soft. Absent: distended, tenderness - Extremities Exam Extremities exam: Present: normal inspection - Neurological Exam Additional comments: right and left upper extremities with minimal rom, strength 4/5 bilaterally at wrists and fingers. Able to fingerspell words on hard surface, cannot lift arm to level of shoulder. lower extremities with normal sensation - Skin Skin exam: Present: dry, intact, normal color, warm Palliative Quality Palliative Quality: Screen for Code Status: Yes, Screen for Goals of Care: Yes, Screen for Pain: Yes, If Pain Regimen Started, Initiate Bowel Regimen: NA, Screen for Nausea/Vomitting: Yes Code Status: 12/04/17 20:06 DNR [Resuscitation Status: Active] [RES] Routine Comment: Resuscitation Status: DNR-Comfort Care-Arrest - Labs CBC & Chem 7: 12/05/17 03:57 12/05/17 03:57 Labs: Laboratory Results - last 24 hr 12/04/17 12/04/17 12/04/17 09:34 11:22 18:17 WBC RBC Hgb Hct MCV MCH MCHC RDW Plt Count MPV Immature Gran % Seg Neutrophils % Lymphocytes % Monocytes % Eosinophils % Basophils % Neutrophils # Lymphocytes # Monocytes # Eosinophils # Basophils # Platelet Estimate ABG pH ABG pCO2 ABG pO2 ABG HCO3 ABG Total CO2 ABG O2 Saturation ABG Base Excess Respiration Rate O2 Delivery Device Blood Gas Modality Inspired O2 Tidal Volume PEEP Sodium Potassium Chloride Carbon Dioxide BUN Creatinine Est GFR ( Amer) Est GFR (Non-Af Amer) BUN/Creatinine Ratio Glucose POC Glucose 139 H 143 H Calculated Osmolality Calcium Vancomycin Trough 12.6 12/04/17 12/05/17 12/05/17 23:15 03:36 03:57 WBC 6.9 RBC 3.30 L Hgb 10.8 L Hct 30.8 L MCV 93.3 MCH 32.7 MCHC 35.1 RDW 12.8 Plt Count 180 MPV 9.4 Immature Gran % 0.4 Seg Neutrophils % 93.1 Lymphocytes % 1.5 Monocytes % 5.0 Eosinophils % 0.0 Basophils % 0.0 Neutrophils # 6.4 Lymphocytes # 0.1 L Monocytes # 0.4 Eosinophils # 0.0 Basophils # 0.0 Platelet Estimate Normal ABG pH 7.38 ABG pCO2 53 H ABG pO2 67 L ABG HCO3 31 H ABG Total CO2 33 H ABG O2 Saturation 92 L ABG Base Excess 5 H Respiration Rate 14 O2 Delivery Device Adult Vent Blood Gas Modality VC Inspired O2 30.0 Tidal Volume 450 PEEP 5 Sodium Potassium Chloride Carbon Dioxide BUN Creatinine Est GFR ( Amer) Est GFR (Non-Af Amer) BUN/Creatinine Ratio Glucose POC Glucose 228 H Calculated Osmolality Calcium Vancomycin Trough 12/05/17 03:57 WBC RBC Hgb Hct MCV MCH MCHC RDW Plt Count MPV Immature Gran % Seg Neutrophils % Lymphocytes % Monocytes % Eosinophils % Basophils % Neutrophils # Lymphocytes # Monocytes # Eosinophils # Basophils # Platelet Estimate ABG pH ABG pCO2 ABG pO2 ABG HCO3 ABG Total CO2 ABG O2 Saturation ABG Base Excess Respiration Rate O2 Delivery Device Blood Gas Modality Inspired O2 Tidal Volume PEEP Sodium 138 Potassium 3.8 Chloride 104 Carbon Dioxide 30 H BUN 21 Creatinine 0.48 L Est GFR ( Amer) > 60 Est GFR (Non-Af Amer) > 60 BUN/Creatinine Ratio 44 H Glucose 170 H POC Glucose Calculated Osmolality 293 Calcium 8.6 Vancomycin Trough - Impressions Impressions Echocardiogram 12/04/17 21:40 Impressions: LVEF 65%. Indeterminate diastolic function. Dilated RV with normal function. Mild tricuspid regurgitation. Borderline pulmonary hypertension. Left Ventricular Wall Motion: Rest Echo Findings The mid inferior lateral and basal inferior lateral healy were not visualized. All other wall segments showed normal motion. Findings: Study Quality * Technically adequate exam. ECG Findings * Sinus tachycardia. Left Ventricle * LVEF 65%. * Normal LV chamber size, wall thickness and function. * Indeterminate diastolic function. Right Ventricle * Dilated RV with normal function. Left Atrium * Normal left atrial size. Right Atrium * Normal right atrial size. Aortic Valve * No aortic regurgitation. * Trileaflet aortic valve. * No aortic stenosis. Mitral Valve * No mitral regurgitation. * Normal mitral valve structure. * No mitral stenosis. Tricuspid Valve * Tricuspid valve not well visualized. * Mild tricuspid regurgitation. * Estimated RA pressure is 3 mmHg. * Borderline pulmonary hypertension. * Estimated RVSP is 35 mmHg. Pulmonic Valve * Pulmonic valve is not well visualized. * No pulmonic stenosis. * No pulmonic regurgitation. Pulmonary Artery * Pulmonary artery not well visualized. Aorta * Normally sized aortic root. * Ascending aorta is not well visualized. Pericardium * There is no pericardial effusion present. Interatrial Septum * No evidence of PFO by color Doppler. IVC * The IVC is not dilated. - ABG Interpretation ABG results: ABG ABG pH 7.38 pH Units (7.32-7.45) 12/05/17 03:36 ABG pCO2 53 mmHg (35-45) H 12/05/17 03:36 ABG pO2 67 mmHg (85-104) L 12/05/17 03:36 ABG O2 Saturation 92 % (95-98) L 12/05/17 03:36 PT/INR, D-dimer PT 9.5 Seconds (9.4-12.1) 12/03/17 01:24 Consult Discharge Plan - Plan [facility]: [facility] Provider[facility] - <Mando Baeza - Last Filed: 12/05/17 08:51> Date of Encounter: 12/05/17 - Time Spent With Patient Total time spent is greater than 50% in coordination of care (as documented) at patient's floor/unit and/or counseling patient: - Constitutional Vitals: Abnormal lab results RBC 3.30 M/mcL (4.19-5.50) L 12/05/17 03:57 Hgb 10.8 g/dL (12.9-16.9) L 12/05/17 03:57 Hct 30.8 % (37.5-50.1) L 12/05/17 03:57 Lymphocytes # 0.1 K/mcL (0.6-4.6) L 12/05/17 03:57 APTT 39.3 Seconds (26.0-36.0) H 12/02/17 20:25 ABG pCO2 53 mmHg (35-45) H 12/05/17 03:36 ABG pO2 67 mmHg (85-104) L 12/05/17 03:36 ABG HCO3 31 mEq/L (21-27) H 12/05/17 03:36 ABG Total CO2 33 mEq/L (20-26) H 12/05/17 03:36 ABG O2 Saturation 92 % (95-98) L 12/05/17 03:36 ABG Base Excess 5 mEq/L (-2 to 3) H 12/05/17 03:36 Carbon Dioxide 30 mEq/L (23-29) H 12/05/17 03:57 Creatinine 0.48 mg/dL (0.70-1.30) L 12/05/17 03:57 BUN/Creatinine Ratio 44 (6-26) H 12/05/17 03:57 Glucose 170 mg/dL (70-105) H 12/05/17 03:57 POC Glucose 228 (58-89) H 12/04/17 23:15 Serum Total Protein 5.9 g/dL (6.4-8.9) L 12/03/17 01:24 Globulin 2.2 g/dL (2.4-3.5) L 12/03/17 01:24 Urine Clarity Cloudy (Clear) A 12/02/17 20:41 Ur Specific [place] 1.026 (1.010-1.025) H 12/02/17 20:41 Urine Glucose (UA) 500 mg/dL (Normal) H 12/02/17 20:41 Urine Blood Small (Negative) H 12/02/17 20:41 Ur Leukocyte Esterase Large (Negative) H 12/02/17 20:41 Urine Microscopic WBC TNTC per hpf (0-3) H 12/02/17 20:41 Ur Culture Indicated? YES (NO) A 12/02/17 20:41 - Attending Attestation I examined this patient and my medical decision-making was reviewed with the Resident Physician. I agree with the documented findings, disposition and treatment plan as described except to the extent set forth below. Palliative Quality Code Status: 12/04/17 20:06 DNR [Resuscitation Status: Active] [RES] Routine Comment: Resuscitation Status: DNR-Comfort Care-Arrest - Labs CBC & Chem 7: 12/05/17 03:57 12/05/17 03:57 Labs: Laboratory Results - last 24 hr 12/04/17 12/04/17 12/04/17 09:34 11:22 18:17 WBC RBC Hgb Hct MCV MCH MCHC RDW Plt Count MPV Immature Gran % Seg Neutrophils % Lymphocytes % Monocytes % Eosinophils % Basophils % Neutrophils # Lymphocytes # Monocytes # Eosinophils # Basophils # Platelet Estimate ABG pH ABG pCO2 ABG pO2 ABG HCO3 ABG Total CO2 ABG O2 Saturation ABG Base Excess Respiration Rate O2 Delivery Device Blood Gas Modality Inspired O2 Tidal Volume PEEP Sodium Potassium Chloride Carbon Dioxide BUN Creatinine Est GFR ( Amer) Est GFR (Non-Af Amer) BUN/Creatinine Ratio Glucose POC Glucose 139 H 143 H Calculated Osmolality Calcium Vancomycin Trough 12.6 12/04/17 12/05/17 12/05/17 23:15 03:36 03:57 WBC 6.9 RBC 3.30 L Hgb 10.8 L Hct 30.8 L MCV 93.3 MCH 32.7 MCHC 35.1 RDW 12.8 Plt Count 180 MPV 9.4 Immature Gran % 0.4 Seg Neutrophils % 93.1 Lymphocytes % 1.5 Monocytes % 5.0 Eosinophils % 0.0 Basophils % 0.0 Neutrophils # 6.4 Lymphocytes # 0.1 L Monocytes # 0.4 Eosinophils # 0.0 Basophils # 0.0 Platelet Estimate Normal ABG pH 7.38 ABG pCO2 53 H ABG pO2 67 L ABG HCO3 31 H ABG Total CO2 33 H ABG O2 Saturation 92 L ABG Base Excess 5 H Respiration Rate 14 O2 Delivery Device Adult Vent Blood Gas Modality VC Inspired O2 30.0 Tidal Volume 450 PEEP 5 Sodium Potassium Chloride Carbon Dioxide BUN Creatinine Est GFR ( Amer) Est GFR (Non-Af Amer) BUN/Creatinine Ratio Glucose POC Glucose 228 H Calculated Osmolality Calcium Vancomycin Trough 12/05/17 03:57 WBC RBC Hgb Hct MCV MCH MCHC RDW Plt Count MPV Immature Gran % Seg Neutrophils % Lymphocytes % Monocytes % Eosinophils % Basophils % Neutrophils # Lymphocytes # Monocytes # Eosinophils # Basophils # Platelet Estimate ABG pH ABG pCO2 ABG pO2 ABG HCO3 ABG Total CO2 ABG O2 Saturation ABG Base Excess Respiration Rate O2 Delivery Device Blood Gas Modality Inspired O2 Tidal Volume PEEP Sodium 138 Potassium 3.8 Chloride 104 Carbon Dioxide 30 H BUN 21 Creatinine 0.48 L Est GFR ( Amer) > 60 Est GFR (Non-Af Amer) > 60 BUN/Creatinine Ratio 44 H Glucose 170 H POC Glucose Calculated Osmolality 293 Calcium 8.6 Vancomycin Trough - Impressions Impressions Echocardiogram 12/04/17 21:40 Impressions: LVEF 65%. Indeterminate diastolic function. Dilated RV with normal function. Mild tricuspid regurgitation. Borderline pulmonary hypertension. Left Ventricular Wall Motion: Rest Echo Findings The mid inferior lateral and basal inferior lateral healy were not visualized. All other wall segments showed normal motion. Findings: Study Quality * Technically adequate exam. ECG Findings * Sinus tachycardia. Left Ventricle * LVEF 65%. * Normal LV chamber size, wall thickness and function. * Indeterminate diastolic function. Right Ventricle * Dilated RV with normal function. Left Atrium * Normal left atrial size. Right Atrium * Normal right atrial size. Aortic Valve * No aortic regurgitation. * Trileaflet aortic valve. * No aortic stenosis. Mitral Valve * No mitral regurgitation. * Normal mitral valve structure. * No mitral stenosis. Tricuspid Valve * Tricuspid valve not well visualized. * Mild tricuspid regurgitation. * Estimated RA pressure is 3 mmHg. * Borderline pulmonary hypertension. * Estimated RVSP is 35 mmHg. Pulmonic Valve * Pulmonic valve is not well visualized. * No pulmonic stenosis. * No pulmonic regurgitation. Pulmonary Artery * Pulmonary artery not well visualized. Aorta * Normally sized aortic root. * Ascending aorta is not well visualized. Pericardium * There is no pericardial effusion present. Interatrial Septum * No evidence of PFO by color Doppler. IVC * The IVC is not dilated. - ABG Interpretation ABG results: ABG ABG pH 7.38 pH Units (7.32-7.45) 12/05/17 03:36 ABG pCO2 53 mmHg (35-45) H 12/05/17 03:36 ABG pO2 67 mmHg (85-104) L 12/05/17 03:36 ABG O2 Saturation 92 % (95-98) L 12/05/17 03:36 PT/INR, D-dimer PT 9.5 Seconds (9.4-12.1) 12/03/17 01:24
[2017-12-05] MEDS: Pantoprazole 40 MG VIAL IVPB SCH (08:21)
[2017-12-05] MEDS: Vancomycin 1,000 MG in D5% in Water 250 ML IVPB SCH (08:21)
[2017-12-05] MEDS: Chlorhexidine Rinse 15 ML MOUTHWASH MM SCH ×2 (08:21→19:10)
[2017-12-05] MEDS: methylPREDNISolone 125 MG/2 ML VIAL IVP SCH ×3 (08:21→23:06)
[2017-12-05] MEDS: amLODIPine 5 MG TABLET PO SCH (08:22)
--- NOTE | 2017-12-05 09:00 | Pulmonology Progress Note ---
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 Patient has failed SBT on 3 consecutive days. latest AB.38/53/67/31/92/5 Plan: continue to monitor continue vent. Patient does not want senior care intubation with this terminal motroneuron disease Plan for terminal extubation tomorrow. Qualifiers: Respiratory failure complication: hypoxia and hypercapnia Qualified Code(s) : J96.01 - Acute respiratory failure with hypoxia; J96.02 - Acute respiratory failure with hypercapnia; J96.02 - Acute respiratory failure with hypercapnia; J96.02 - Acute respiratory failure with hypercapnia (2) Cardiac arrest Current Visit: Yes Status: Acute Patient suffered cardiac arrest at OSH for unknown reason. ACLS was performed and patient was intubated. Trop negative x 3 EKG reviewed by cardiology Continue post ACLS protocol on vent but alert and able to communicate by spelling out words with his finger tracing. Started patient on Duonebs, and Steroids consulted nutrition to start tube feeds Echo showed: LVEF 65%. Indeterminate diastolic function. Dilated RV with normal function. Mild tricuspid regurgitation. Borderline pulmonary hypertension. Plan: continue Mechancial vent ween as able (3) PNA (pneumonia) Current Visit: Yes Status: Suspected CXR: Questionable RUL infiltrate. Started on Vanc and Zosyn BCX pending from [place] WBC 6.9 today Plan: Stopped Vanc Continue zosyn continue to monitor Qualifiers: Pneumonia type: aspiration pneumonia Aspiration pneumonia type: unspecified Laterality: right Lung location: upper lobe of lung Qualified Code(s): J69.0 - Pneumonitis due to inhalation of food and vomit (4) Hypothyroidism Current Visit: Yes Status: Acute Patient with hx of Hypothyroidism on Synthroid Plan: restarted home synthroid Qualifiers: Hypothyroidism type: unspecified Qualified Code(s): E03.9 - Hypothyroidism , unspecified (5) Motor neuron disease, unspecified Current Visit: Yes Status: Acute Patient has had progressive weakness since February 2017 Patient with bulbar symptoms being worked up [facility] just 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 Patient planning for terminal extubation tomorrow. (6) DVT prophylaxis Current Visit: Yes Status: Acute Patient started on Lovennox 40mg Daily Cr. clearance 71 Plan: continue lovennox Subjective Principal diagnosis: acute respiratory failure secondary to pneumonia Objective PUL Vital signs: Last Vital Signs Temp 98.3 F 12/05/17 07:22 Pulse 89 12/05/17 05:44 Resp 20 12/05/17 07:41 BP 139/76 12/05/17 07:41 Pulse Ox 96 12/05/17 07:41 Ventilator Settings Ventilator Settings: Ventilator Settings, Last 8 Hours Ventilator Mode VC+ Ventilator Mode VC+ Ventilator Mode VC+ Ventilator Mode VC+ Ventilator Mode VC+ Ventilator Mode VC+ Ventilator Mode VC+ Ventilator Mode VC+ Ventilator Mode VC+ Ventilator Mode VC+ Ventilator Mode VC+ Ventilator Tidal Volume 450 Setting Ventilator Tidal Volume 450 Setting Ventilator Tidal Volume 450 Setting Ventilator Tidal Volume 450 Setting Ventilator Tidal Volume 450 Setting Ventilator Tidal Volume 450 Setting Ventilator Tidal Volume 450 Setting Ventilator Tidal Volume 450 Setting Ventilator Tidal Volume 450 Setting Ventilator Tidal Volume 450 Setting Ventilator Tidal Volume 450 Setting Ventilator Respiratory Rate 14 Setting Ventilator Respiratory Rate 14 Setting Ventilator Respiratory Rate 14 Setting Ventilator Respiratory Rate 14 Setting Ventilator Respiratory Rate 14 Setting Ventilator Respiratory Rate 14 Setting Ventilator Respiratory Rate 14 Setting Ventilator Respiratory Rate 14 Setting Ventilator Respiratory Rate 14 Setting Ventilator Respiratory Rate 14 Setting Ventilator Respiratory Rate 14 Setting Actual Respiratory Rate 21 Actual Respiratory Rate 20 Actual Respiratory Rate 20 Actual Respiratory Rate 15 Actual Respiratory Rate 15 Actual Respiratory Rate 15 Actual Respiratory Rate 15 Actual Respiratory Rate 15 Actual Respiratory Rate 16 Actual Respiratory Rate 15 Positive End Expiratory 5 Pressure Positive End Expiratory 5 Pressure Positive End Expiratory 5 Pressure Positive End Expiratory 5 Pressure Positive End Expiratory 5 Pressure Positive End Expiratory 5 Pressure Positive End Expiratory 5 Pressure Positive End Expiratory 5 Pressure Positive End Expiratory 5 Pressure Positive End Expiratory 5 Pressure Positive End Expiratory 5 Pressure Peak Inspiratory Airway 15 Pressure Peak Inspiratory Airway 14 Pressure Peak Inspiratory Airway 14 Pressure Peak Inspiratory Airway 16 Pressure Peak Inspiratory Airway 16 Pressure Peak Inspiratory Airway 16 Pressure Peak Inspiratory Airway 16 Pressure Peak Inspiratory Airway 16 Pressure Peak Inspiratory Airway 16 Pressure Peak Inspiratory Airway 18 Pressure Results - Laboratory Findings CBC and BMP: 12/05/17 03:57 12/05/17 03:57 ABG ABG pH 7.38 pH Units (7.32-7.45) 12/05/17 03:36 ABG pCO2 53 mmHg (35-45) H 12/05/17 03:36 ABG pO2 67 mmHg (85-104) L 12/05/17 03:36 ABG O2 Saturation 92 % (95-98) L 12/05/17 03:36 PT/INR, D-dimer PT 9.5 Seconds (9.4-12.1) 12/03/17 01:24 Abnormal lab findings: Abnormal lab results RBC 3.30 M/mcL (4.19-5.50) L 12/05/17 03:57 Hgb 10.8 g/dL (12.9-16.9) L 12/05/17 03:57 Hct 30.8 % (37.5-50.1) L 12/05/17 03:57 Lymphocytes # 0.1 K/mcL (0.6-4.6) L 12/05/17 03:57 APTT 39.3 Seconds (26.0-36.0) H 12/02/17 20:25 ABG pCO2 53 mmHg (35-45) H 12/05/17 03:36 ABG pO2 67 mmHg (85-104) L 12/05/17 03:36 ABG HCO3 31 mEq/L (21-27) H 12/05/17 03:36 ABG Total CO2 33 mEq/L (20-26) H 12/05/17 03:36 ABG O2 Saturation 92 % (95-98) L 12/05/17 03:36 ABG Base Excess 5 mEq/L (-2 to 3) H 12/05/17 03:36 Carbon Dioxide 30 mEq/L (23-29) H 12/05/17 03:57 Creatinine 0.48 mg/dL (0.70-1.30) L 12/05/17 03:57 BUN/Creatinine Ratio 44 (6-26) H 12/05/17 03:57 Glucose 170 mg/dL (70-105) H 12/05/17 03:57 POC Glucose 228 (58-89) H 12/04/17 23:15 Serum Total Protein 5.9 g/dL (6.4-8.9) L 12/03/17 01:24 Globulin 2.2 g/dL (2.4-3.5) L 12/03/17 01:24 Urine Clarity Cloudy (Clear) A 12/02/17 20:41 Ur Specific [place] 1.026 (1.010-1.025) H 12/02/17 20:41 Urine Glucose (UA) 500 mg/dL (Normal) H 12/02/17 20:41 Urine Blood Small (Negative) H 12/02/17 20:41 Ur Leukocyte Esterase Large (Negative) H 12/02/17 20:41 Urine Microscopic WBC TNTC per hpf (0-3) H 12/02/17 20:41 Ur Culture Indicated? YES (NO) A 12/02/17 20:41 - Clinical Findings Intake & Output: Intake & Output 12/04/17 12/05/17 12/05/17 23:59 07:59 15:59 Intake Total 1562 / 1562 748 / 748 100 / 100 Output Total 800 / 800 850 / 850 Balance 762 / 762 -102 / -102 100 / 100 Weight 53.8 kg - VTE Documentation of Mechanical Device: Intermittent pneumatic compression device Consult Discharge Plan - Plan [facility]errals: [facility] [Primary Care Provider] - <Thomas Sidhu - Last Filed: 12/05/17 22:01> Date of Encounter: 12/05/17 Assessment and Plan (1) Acute respiratory failure Current Visit: Yes Status: Acute Qualifiers: Respiratory failure complication: hypoxia and hypercapnia Qualified Code(s) : J96.01 - Acute respiratory failure with hypoxia; J96.02 - Acute respiratory failure with hypercapnia; J96.02 - Acute respiratory failure with hypercapnia; J96.02 - Acute respiratory failure with hypercapnia (2) Cardiac arrest Current Visit: Yes Status: Acute (3) PNA (pneumonia) Current Visit: Yes Status: Suspected Qualifiers: Pneumonia type: aspiration pneumonia Aspiration pneumonia type: unspecified Laterality: right Lung location: upper lobe of lung Qualified Code(s): J69.0 - Pneumonitis due to inhalation of food and vomit (4) Motor neuron disease, unspecified Current Visit: Yes Status: Acute (5) Counseling regarding advanced care planning and goals of care Current Visit: Yes Status: Acute Objective PUL Vital signs: Last Vital Signs Temp 98.2 F 12/05/17 12:00 Pulse 90 12/05/17 15:00 Resp 17 12/05/17 15:00 BP 172/87 12/05/17 15:00 Pulse Ox 97 12/05/17 15:00 Ventilator Settings Ventilator Settings: Ventilator Settings, Last 8 Hours Ventilator Mode VC+ Ventilator Mode VC+ Ventilator Mode VC+ Ventilator Mode VC+ Ventilator Mode VC+ Ventilator Mode VC+ Ventilator Mode VC+ Ventilator Mode VC+ Ventilator Mode VC+ Ventilator Mode VC+ Ventilator Mode VC+ Ventilator Mode VC+ Ventilator Tidal Volume 450 Setting Ventilator Tidal Volume 450 Setting Ventilator Tidal Volume 450 Setting Ventilator Tidal Volume 450 Setting Ventilator Tidal Volume 450 Setting Ventilator Tidal Volume 450 Setting Ventilator Tidal Volume 450 Setting Ventilator Tidal Volume 450 Setting Ventilator Tidal Volume 450 Setting Ventilator Tidal Volume 450 Setting Ventilator Tidal Volume 450 Setting Ventilator Tidal Volume 450 Setting Ventilator Respiratory Rate 14 Setting Ventilator Respiratory Rate 14 Setting Ventilator Respiratory Rate 14 Setting Ventilator Respiratory Rate 14 Setting Ventilator Respiratory Rate 14 Setting Ventilator Respiratory Rate 14 Setting Ventilator Respiratory Rate 14 Setting Ventilator Respiratory Rate 14 Setting Ventilator Respiratory Rate 14 Setting Ventilator Respiratory Rate 14 Setting Ventilator Respiratory Rate 14 Setting Ventilator Respiratory Rate 14 Setting Actual Respiratory Rate 14 Actual Respiratory Rate 14 Actual Respiratory Rate 14 Actual Respiratory Rate 18 Actual Respiratory Rate 18 Actual Respiratory Rate 18 Actual Respiratory Rate 18 Actual Respiratory Rate 21 Actual Respiratory Rate 18 Actual Respiratory Rate 21 Actual Respiratory Rate 21 Actual Respiratory Rate 21 Positive End Expiratory 5 Pressure Positive End Expiratory 5 Pressure Positive End Expiratory 5 Pressure Positive End Expiratory 5 Pressure Positive End Expiratory 5 Pressure Positive End Expiratory 5 Pressure Positive End Expiratory 5 Pressure Positive End Expiratory 5 Pressure Positive End Expiratory 5 Pressure Positive End Expiratory 5 Pressure Positive End Expiratory 5 Pressure Positive End Expiratory 5 Pressure Peak Inspiratory Airway 19 Pressure Peak Inspiratory Airway 19 Pressure Peak Inspiratory Airway 19 Pressure Peak Inspiratory Airway 15 Pressure Peak Inspiratory Airway 15 Pressure Peak Inspiratory Airway 15 Pressure Peak Inspiratory Airway 15 Pressure Peak Inspiratory Airway 15 Pressure Peak Inspiratory Airway 15 Pressure Peak Inspiratory Airway 15 Pressure Peak Inspiratory Airway 15 Pressure Peak Inspiratory Airway 15 Pressure Results - Laboratory Findings CBC and BMP: 12/05/17 03:57 12/05/17 03:57 ABG ABG pH 7.38 pH Units (7.32-7.45) 12/05/17 03:36 ABG pCO2 53 mmHg (35-45) H 12/05/17 03:36 ABG pO2 67 mmHg (85-104) L 12/05/17 03:36 ABG O2 Saturation 92 % (95-98) L 12/05/17 03:36 PT/INR, D-dimer PT 9.5 Seconds (9.4-12.1) 12/03/17 01:24 Abnormal lab findings: Abnormal lab results RBC 3.30 M/mcL (4.19-5.50) L 12/05/17 03:57 Hgb 10.8 g/dL (12.9-16.9) L 12/05/17 03:57 Hct 30.8 % (37.5-50.1) L 12/05/17 03:57 Lymphocytes # 0.1 K/mcL (0.6-4.6) L 12/05/17 03:57 APTT 39.3 Seconds (26.0-36.0) H 12/02/17 20:25 ABG pCO2 53 mmHg (35-45) H 12/05/17 03:36 ABG pO2 67 mmHg (85-104) L 12/05/17 03:36 ABG HCO3 31 mEq/L (21-27) H 12/05/17 03:36 ABG Total CO2 33 mEq/L (20-26) H 12/05/17 03:36 ABG O2 Saturation 92 % (95-98) L 12/05/17 03:36 ABG Base Excess 5 mEq/L (-2 to 3) H 12/05/17 03:36 Carbon Dioxide 30 mEq/L (23-29) H 12/05/17 03:57 Creatinine 0.48 mg/dL (0.70-1.30) L 12/05/17 03:57 BUN/Creatinine Ratio 44 (6-26) H 12/05/17 03:57 Glucose 170 mg/dL (70-105) H 12/05/17 03:57 POC Glucose 228 (58-89) H 12/04/17 23:15 Serum Total Protein 5.9 g/dL (6.4-8.9) L 12/03/17 01:24 Globulin 2.2 g/dL (2.4-3.5) L 12/03/17 01:24 Urine Clarity Cloudy (Clear) A 12/02/17 20:41 Ur Specific [place] 1.026 (1.010-1.025) H 12/02/17 20:41 Urine Glucose (UA) 500 mg/dL (Normal) H 12/02/17 20:41 Urine Blood Small (Negative) H 12/02/17 20:41 Ur Leukocyte Esterase Large (Negative) H 12/02/17 20:41 Urine Microscopic WBC TNTC per hpf (0-3) H 12/02/17 20:41 Ur Culture Indicated? YES (NO) A 12/02/17 20:41 - Clinical Findings Intake & Output: Intake & Output 12/04/17 12/05/17 12/05/17 23:59 07:59 15:59 Intake Total 1562 / 1562 748 / 748 493 / 493 Output Total 800 / 800 850 / 850 250 / 250 Balance 762 / 762 -102 / -102 243 / 243 Weight 53.8 kg - Attending Attestation I saw the patient with the resident agree with History and Physical exam findings. 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 no treatment options available on SBT patient has increased respiratory distress with heavy accessory muscle of respiration use which results worsening hypercarbic respiratory failure if extubated will be BIPAP dependent patient doesnt want to prolong his disease process if it is terminal Cardiac : Hemodynamically stable Nutrition/GI: Patient is on tube feeds, PPI prophylaxis Renal : Labs reviewed Heme onc : No acute ussues ID : Treating for pneumonia Musculo skeletal / skin issues : No acute issues Disposition : Critical Code status: DNRCCA family and patient wants to focus comfort goals appreciate palliative hlep. Family/POA: Son updated to take their time .
[2017-12-06] MEDS: Lacri-Lube 3.5 GM TUBE BOTH EYES SCH ×4 (01:32→11:32)
[2017-12-06] MEDS: Dexmedetomidine HCl 400 MCG/100 ML MLS IVC SCH ×3 (01:57→14:46)
[2017-12-06] MEDS: Ipratropium/Albuterol Neb 3 ML IH SCH ×4 (04:10→22:02)
[2017-12-06 05:37] LABS: ABG Base Excess 10 mEq/L (-2 to 3); ABG HCO3 35 mEq/L (21-27); ABG Oxygen Saturation 99 % (95-98); ABG PCO2 50 mmHg (35-45); ABG PH 7.46 pH Units (7.32-7.45); ABG PO2 111 mmHg (85-104); ABG TCO2 37 mEq/L (20-26); Blood Gas Modality PRVC; Blood Gas PEEP 5 cm H2O; Blood Gas Respiration Rate 14; Blood Gas VT 450 cc
[2017-12-06] MEDS: Insulin LISPRO 300 UNITS/3 ML VIAL SQ SCH ×2 (06:10→11:31)
[2017-12-06] MEDS: *HR* Enoxaparin 40 MG/0.4 ML SYRINGE SQ SCH (06:10)
[2017-12-06] MEDS: Piperacillin/Tazobactam 3.375 GM/200 ML BAG IVPB SCH ×2 (06:10→22:37)
--- NOTE | 2017-12-06 08:36 | Pulmonology Progress Note ---
Date of Encounter: 12/06/17 Time of Encounter: 08:15 Assessment and Plan (1) Acute respiratory failure Current Visit: Yes Status: Acute tried SBT patient failed today . Qualifiers: Respiratory failure complication: hypoxia and hypercapnia Qualified Code(s) : J96.01 - Acute respiratory failure with hypoxia; J96.02 - Acute respiratory failure with hypercapnia; J96.02 - Acute respiratory failure with hypercapnia; J96.02 - Acute respiratory failure with hypercapnia (2) Cardiac arrest Current Visit: Yes Status: Acute Cardiac arrest most likely secondary to aspiration pneumonia and hypoxic respiratory failure (3) PNA (pneumonia) Current Visit: Yes Status: Suspected Patient is on broad spectrum antibiotics will be descalating soon. 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 (5) Counseling regarding advanced care planning and goals of care Current Visit: Yes Status: Acute and My self spoke with family in two separate settings son and daughter -in law said his father will want to be connected to life support if he has incurable disease. he doesnt want to be kept like this patient nodded his head . Family members is going to get together probable comfort measures 24- 48 for now will change code status DNRCCA arrest . Patient son agrees with code status change. Subjective Principal diagnosis: acute respiratory failure secondary to pneumonia Interval history: Patient came post cardiac arrest from [place] [facility] due to aspiration pneumonia and hypoxia secondary to progressive bulbar weakness. Objective PUL Vital signs: Last Vital Signs Temp 98.1 F 12/06/17 08:27 Pulse 78 12/06/17 05:38 Resp 14 12/06/17 07:32 BP 126/56 12/06/17 06:25 Pulse Ox 99 12/06/17 07:32 Ventilator Settings Ventilator Settings: Ventilator Settings, Last 8 Hours Ventilator Mode VC+ Ventilator Mode VC+ Ventilator Mode VC+ Ventilator Mode VC+ Ventilator Mode VC+ Ventilator Mode VC+ Ventilator Mode VC+ Ventilator Mode VC+ Ventilator Mode VC+ Ventilator Mode VC+ Ventilator Mode VC+ Ventilator Tidal Volume 450 Setting Ventilator Tidal Volume 450 Setting Ventilator Tidal Volume 450 Setting Ventilator Tidal Volume 450 Setting Ventilator Tidal Volume 450 Setting Ventilator Tidal Volume 450 Setting Ventilator Tidal Volume 450 Setting Ventilator Tidal Volume 450 Setting Ventilator Tidal Volume 450 Setting Ventilator Tidal Volume 450 Setting Ventilator Tidal Volume 450 Setting Ventilator Respiratory Rate 14 Setting Ventilator Respiratory Rate 14 Setting Ventilator Respiratory Rate 14 Setting Ventilator Respiratory Rate 14 Setting Ventilator Respiratory Rate 14 Setting Ventilator Respiratory Rate 14 Setting Ventilator Respiratory Rate 14 Setting Ventilator Respiratory Rate 14 Setting Ventilator Respiratory Rate 14 Setting Ventilator Respiratory Rate 14 Setting Ventilator Respiratory Rate 14 Setting Actual Respiratory Rate 14 Actual Respiratory Rate 14 Actual Respiratory Rate 14 Actual Respiratory Rate 14 Actual Respiratory Rate 15 Actual Respiratory Rate 14 Actual Respiratory Rate 17 Actual Respiratory Rate 15 Actual Respiratory Rate 15 Actual Respiratory Rate 16 Positive End Expiratory 5 Pressure Positive End Expiratory 5 Pressure Positive End Expiratory 5 Pressure Positive End Expiratory 5 Pressure Positive End Expiratory 5 Pressure Positive End Expiratory 5 Pressure Positive End Expiratory 5 Pressure Positive End Expiratory 5 Pressure Positive End Expiratory 5 Pressure Positive End Expiratory 5 Pressure Positive End Expiratory 5 Pressure Peak Inspiratory Airway 20 Pressure Peak Inspiratory Airway 19 Pressure Peak Inspiratory Airway 19 Pressure Peak Inspiratory Airway 19 Pressure Peak Inspiratory Airway 17 Pressure Peak Inspiratory Airway 19 Pressure Peak Inspiratory Airway 18 Pressure Peak Inspiratory Airway 18 Pressure Peak Inspiratory Airway 18 Pressure Peak Inspiratory Airway 16 Pressure Results - Laboratory Findings CBC and BMP: 12/05/17 03:57 12/05/17 03:57 ABG ABG pH 7.46 pH Units (7.32-7.45) H 12/06/17 05:34 ABG pCO2 50 mmHg (35-45) H 12/06/17 05:34 ABG pO2 111 mmHg (85-104) H 12/06/17 05:34 ABG O2 Saturation 99 % (95-98) H 12/06/17 05:34 PT/INR, D-dimer PT 9.5 Seconds (9.4-12.1) 12/03/17 01:24 Abnormal lab findings: Abnormal lab results RBC 3.30 M/mcL (4.19-5.50) L 12/05/17 03:57 Hgb 10.8 g/dL (12.9-16.9) L 12/05/17 03:57 Hct 30.8 % (37.5-50.1) L 12/05/17 03:57 Lymphocytes # 0.1 K/mcL (0.6-4.6) L 12/05/17 03:57 APTT 39.3 Seconds (26.0-36.0) H 12/02/17 20:25 ABG pH 7.46 pH Units (7.32-7.45) H 12/06/17 05:34 ABG pCO2 50 mmHg (35-45) H 12/06/17 05:34 ABG pO2 111 mmHg (85-104) H 12/06/17 05:34 ABG HCO3 35 mEq/L (21-27) H 12/06/17 05:34 ABG Total CO2 37 mEq/L (20-26) H 12/06/17 05:34 ABG O2 Saturation 99 % (95-98) H 12/06/17 05:34 ABG Base Excess 10 mEq/L (-2 to 3) H 12/06/17 05:34 Carbon Dioxide 30 mEq/L (23-29) H 12/05/17 03:57 Creatinine 0.48 mg/dL (0.70-1.30) L 12/05/17 03:57 BUN/Creatinine Ratio 44 (6-26) H 12/05/17 03:57 Glucose 170 mg/dL (70-105) H 12/05/17 03:57 POC Glucose 164 (58-89) H 12/05/17 23:01 Serum Total Protein 5.9 g/dL (6.4-8.9) L 12/03/17 01:24 Globulin 2.2 g/dL (2.4-3.5) L 12/03/17 01:24 Urine Clarity Cloudy (Clear) A 12/02/17 20:41 Ur Specific [place] 1.026 (1.010-1.025) H 12/02/17 20:41 Urine Glucose (UA) 500 mg/dL (Normal) H 12/02/17 20:41 Urine Blood Small (Negative) H 12/02/17 20:41 Ur Leukocyte Esterase Large (Negative) H 12/02/17 20:41 Urine Microscopic WBC TNTC per hpf (0-3) H 12/02/17 20:41 Ur Culture Indicated? YES (NO) A 12/02/17 20:41 - Clinical Findings Intake & Output: Intake & Output 12/05/17 12/06/17 12/06/17 23:59 07:59 15:59 Intake Total 1062 / 1062 899 / 899 Output Total 600 / 600 100 / 100 Balance 462 / 462 899 / 899 -100 / -100 Weight 55.2 kg - VTE Documentation of Mechanical Device: Intermittent pneumatic compression device Consult Discharge Plan - Plan [facility]errals: [facility] [Primary Care Provider] - - Attending Attestation I saw the patient with the resident agree with History and Physical exam findings. 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 Family is planning to keep him comfortable planning for compassionate extubation to comfort Cardiac : Hemodynamically stable Nutrition/GI: Patient is on tube feeds, PPI prophylaxis Renal : Labs reviewed Heme onc : No acute ussues ID : Treating for pneumonia Musculo skeletal / skin issues : No acute issues Disposition : Critical Code status: DNRCCA family and patient wants to focus comfort goals appreciate palliative help. will extubate to comfort Family/POA: Son updated the extubated to comfort process
[2017-12-06] MEDS: Chlorhexidine Rinse 15 ML MOUTHWASH MM SCH (08:53)
[2017-12-06] MEDS: methylPREDNISolone 125 MG/2 ML VIAL IVP SCH ×3 (08:53→23:32)
[2017-12-06] MEDS: Pantoprazole 40 MG VIAL IVPB SCH (08:53)
[2017-12-06] MEDS: amLODIPine 5 MG TABLET PO SCH (08:54)
[2017-12-06] MEDS ORDERED: *HR* LORazepam 2 MG/ML VIAL IVP PRN (13:06)
--- NOTE | 2017-12-06 13:14 | Palliative Progress Note ---
Date of Encounter: 12/06/17 Time of Encounter: 13:05 - Assessment and plan (1) Anxiety Current Visit: Yes Status: Acute Assessment and plan: Lorazepam 1mg prior to extubation and every 2 hours PRN. WIll titrate as necessary. (2) Dyspnea Current Visit: Yes Status: Acute Assessment and plan: Compassionate extubation today. Will dose with Morphine 4mg prior to withdrawal of ventilator and have available often afterwards if needed for resp distress. Titrate as needed. Provide oxygen for comfort. (3) PNA (pneumonia) Current Visit: Yes Status: Suspected Qualifiers: Pneumonia type: aspiration pneumonia Aspiration pneumonia type: unspecified Laterality: right Lung location: upper lobe of lung Qualified Code(s): J69.0 - Pneumonitis due to inhalation of food and vomit (4) Counseling regarding advanced care planning and goals of care Current Visit: Yes Status: Acute Assessment and plan: Multiple family members at bedside. Patient will be compassionately extubated today and transition to comfort care. Transition to DNRCC. Monitor closely and assist with symptom management. If stable, may transition to palliative bed under hospitalist care. (5) Cardiac arrest Current Visit: Yes Status: Acute - Time Spent With Patient Total time spent is greater than 50% in coordination of care (as documented) at patient's floor/unit and/or counseling patient: 25 - 35 minutes - Subjective Interval history: Patient lightly sedated but able to awaken with name calling and shake head yes/ no to questions. Motions to mouth to get tube out. Family members at bedside. - Constitutional Vitals: Abnormal lab results RBC 3.30 M/mcL (4.19-5.50) L 12/05/17 03:57 Hgb 10.8 g/dL (12.9-16.9) L 12/05/17 03:57 Hct 30.8 % (37.5-50.1) L 12/05/17 03:57 Lymphocytes # 0.1 K/mcL (0.6-4.6) L 12/05/17 03:57 APTT 39.3 Seconds (26.0-36.0) H 12/02/17 20:25 ABG pH 7.46 pH Units (7.32-7.45) H 12/06/17 05:34 ABG pCO2 50 mmHg (35-45) H 12/06/17 05:34 ABG pO2 111 mmHg (85-104) H 12/06/17 05:34 ABG HCO3 35 mEq/L (21-27) H 12/06/17 05:34 ABG Total CO2 37 mEq/L (20-26) H 12/06/17 05:34 ABG O2 Saturation 99 % (95-98) H 12/06/17 05:34 ABG Base Excess 10 mEq/L (-2 to 3) H 12/06/17 05:34 Carbon Dioxide 30 mEq/L (23-29) H 12/05/17 03:57 Creatinine 0.48 mg/dL (0.70-1.30) L 12/05/17 03:57 BUN/Creatinine Ratio 44 (6-26) H 12/05/17 03:57 Glucose 170 mg/dL (70-105) H 12/05/17 03:57 POC Glucose 164 (58-89) H 12/05/17 23:01 Serum Total Protein 5.9 g/dL (6.4-8.9) L 12/03/17 01:24 Globulin 2.2 g/dL (2.4-3.5) L 12/03/17 01:24 Urine Clarity Cloudy (Clear) A 12/02/17 20:41 Ur Specific [place] 1.026 (1.010-1.025) H 12/02/17 20:41 Urine Glucose (UA) 500 mg/dL (Normal) H 12/02/17 20:41 Urine Blood Small (Negative) H 12/02/17 20:41 Ur Leukocyte Esterase Large (Negative) H 12/02/17 20:41 Urine Microscopic WBC TNTC per hpf (0-3) H 12/02/17 20:41 Ur Culture Indicated? YES (NO) A 12/02/17 20:41 General appearance: Present: no acute distress - Respiratory Respiratory exam: Present: decreased breath sounds, CTAB Additional comments: Remains on vent at current time - Cardiovascular Cardiovascular exam: Present: +S1, +S2 - GI/Abdominal GI/Abdominal exam: Present: normal bowel sounds, soft - Extremities Exam Extremities exam: Present: normal capillary refill, normal inspection - Neurological Exam Neurological exam: Present: alert Additional comments: Follows simple commands - Skin Skin exam: Present: dry, pallor, warm Palliative Quality Palliative Quality: Screen for Code Status: Yes, Screen for Goals of Care: Yes, Screen for Pain: Yes, If Pain Regimen Started, Initiate Bowel Regimen: NA, Screen for Nausea/Vomitting: Yes Code Status: 12/04/17 20:06 DNR [Resuscitation Status: Active] [RES] Routine Comment: Resuscitation Status: DNR-Comfort Care-Arrest 12/06/17 13:07 DNR [Resuscitation Status: Active] [RES] Routine Comment: Resuscitation Status: DNR-Comfort Care - Labs CBC & Chem 7: 12/05/17 03:57 12/05/17 03:57 Labs: Laboratory Results - last 24 hr 12/05/17 12/05/17 12/05/17 11:09 17:44 23:01 Sample Site ABG pH ABG pCO2 ABG pO2 ABG HCO3 ABG Total CO2 ABG O2 Saturation ABG Base Excess Junior Test Respiration Rate O2 Delivery Device Blood Gas Modality Inspired O2 Tidal Volume PEEP POC Glucose 139 H 162 H 164 H 12/06/17 05:34 Sample Site R Radial ABG pH 7.46 H ABG pCO2 50 H ABG pO2 111 H ABG HCO3 35 H ABG Total CO2 37 H ABG O2 Saturation 99 H ABG Base Excess 10 H Junior Test Positive Respiration Rate 14 O2 Delivery Device Adult Vent Blood Gas Modality PRVC Inspired O2 30.0 Tidal Volume 450 PEEP 5 POC Glucose - ABG Interpretation ABG results: ABG ABG pH 7.46 pH Units (7.32-7.45) H 12/06/17 05:34 ABG pCO2 50 mmHg (35-45) H 12/06/17 05:34 ABG pO2 111 mmHg (85-104) H 12/06/17 05:34 ABG O2 Saturation 99 % (95-98) H 12/06/17 05:34 PT/INR, D-dimer PT 9.5 Seconds (9.4-12.1) 12/03/17 01:24 Consult Discharge Plan - Plan [facility]errals: [facility] [Primary Care Provider] -
[2017-12-06] MEDS ORDERED: Atropine Sulfate 1% 40 DROP/2 ML BOTTLE SL PRN ×2 (13:18→15:32)
[2017-12-06] MEDS: *HR* Morphine 2 MG/ML SYRINGE IVP PRN ×4 (13:24→21:48)
[2017-12-06 15:04] LABS: Smooth Muscle Ab Titer IgG <1:20 (<1:20)
[2017-12-06] MEDS ORDERED: Albuterol 2.5 MG/3 ML NEBULIZER IH PRN (15:32)
[2017-12-06] MEDS ORDERED: Haloperidol Lactate 5 MG/ML VIAL IVP PRN (15:32)
[2017-12-06] MEDS ORDERED: Dexmedetomidine HCl 400 MCG/100 ML MLS IVC SCH (15:32)
[2017-12-06] MEDS ORDERED: Acetaminophen 650 MG RECTAL SUPP RC PRN (15:32)
[2017-12-06] MEDS: *HR* LORazepam 2 MG/ML VIAL IVP PRN (22:37)
[2017-12-07] MEDS: *HR* Morphine 2 MG/ML SYRINGE IVP PRN ×7 (00:56→16:30)
[2017-12-07] MEDS: *HR* LORazepam 2 MG/ML VIAL IVP PRN ×8 (01:02→19:55)
[2017-12-07] MEDS: Ipratropium/Albuterol Neb 3 ML IH SCH ×4 (04:35→21:25)
[2017-12-07] MEDS: Piperacillin/Tazobactam 3.375 GM/200 ML BAG IVPB SCH (05:19)
[2017-12-07] MEDS: methylPREDNISolone 125 MG/2 ML VIAL IVP SCH (08:36)
[2017-12-07] MEDS ORDERED: amLODIPine 5 MG TABLET PO SCH (09:00)
[2017-12-07] MEDS ORDERED: Haloperidol Lactate 5 MG/ML VIAL IVP PRN (10:00)
--- NOTE | 2017-12-07 10:03 | Palliative Progress Note ---
Date of Encounter: 12/07/17 Time of Encounter: 10:00 - Assessment and plan (1) Anxiety Current Visit: Yes Status: Acute Assessment and plan: Continue Lorazepam PRN. Utilized x4 last 24 hours (2) Dyspnea Current Visit: Yes Status: Acute Assessment and plan: Continue supportive oxygen. Morphine for air hunger. Utilized x5 last 24 hours. Monitor (3) Counseling regarding advanced care planning and goals of care Current Visit: Yes Status: Acute Assessment and plan: Very weak - resp shallow and irreg. Unable to verbalize today. Family at bedside states unable to swallow. Appears fairly comfortable - does grimace some when awake. Emotional support provided to family. Will continue comfort care. Patient is from the NH - if he survived the next few days - the NH could likely take him as a hospice patient, however, would be Friday before this could happen. He may not survive that long. Will continue to follow and assist with symptom management. (4) PNA (pneumonia) Current Visit: Yes Status: Suspected Qualifiers: Pneumonia type: aspiration pneumonia Aspiration pneumonia type: unspecified Laterality: right Lung location: upper lobe of lung Qualified Code(s): J69.0 - Pneumonitis due to inhalation of food and vomit (5) Cardiac arrest Current Visit: Yes Status: Acute - Time Spent With Patient Total time spent is greater than 50% in coordination of care (as documented) at patient's floor/unit and/or counseling patient: 25 - 35 minutes - Subjective Interval history: Patient sleeping quietly, does awaken with assessment this am. Very weak - unable to speak - does shake head slightly to answer questions. Resp shallow and irreg - approx 6/min. Family at bedside. - Constitutional Vitals: Abnormal lab results RBC 3.30 M/mcL (4.19-5.50) L 12/05/17 03:57 Hgb 10.8 g/dL (12.9-16.9) L 12/05/17 03:57 Hct 30.8 % (37.5-50.1) L 12/05/17 03:57 Lymphocytes # 0.1 K/mcL (0.6-4.6) L 12/05/17 03:57 APTT 39.3 Seconds (26.0-36.0) H 12/02/17 20:25 ABG pH 7.46 pH Units (7.32-7.45) H 12/06/17 05:34 ABG pCO2 50 mmHg (35-45) H 12/06/17 05:34 ABG pO2 111 mmHg (85-104) H 12/06/17 05:34 ABG HCO3 35 mEq/L (21-27) H 12/06/17 05:34 ABG Total CO2 37 mEq/L (20-26) H 12/06/17 05:34 ABG O2 Saturation 99 % (95-98) H 12/06/17 05:34 ABG Base Excess 10 mEq/L (-2 to 3) H 12/06/17 05:34 Carbon Dioxide 30 mEq/L (23-29) H 12/05/17 03:57 Creatinine 0.48 mg/dL (0.70-1.30) L 12/05/17 03:57 BUN/Creatinine Ratio 44 (6-26) H 12/05/17 03:57 Glucose 170 mg/dL (70-105) H 12/05/17 03:57 POC Glucose 125 (58-89) H 12/06/17 11:29 Serum Total Protein 5.9 g/dL (6.4-8.9) L 12/03/17 01:24 Globulin 2.2 g/dL (2.4-3.5) L 12/03/17 01:24 Urine Clarity Cloudy (Clear) A 12/02/17 20:41 Ur Specific [place] 1.026 (1.010-1.025) H 12/02/17 20:41 Urine Glucose (UA) 500 mg/dL (Normal) H 12/02/17 20:41 Urine Blood Small (Negative) H 12/02/17 20:41 Ur Leukocyte Esterase Large (Negative) H 12/02/17 20:41 Urine Microscopic WBC TNTC per hpf (0-3) H 12/02/17 20:41 Ur Culture Indicated? YES (NO) A 12/02/17 20:41 General appearance: Present: no acute distress - Respiratory Additional comments: Breath sounds diminished. Resp shallow and irreg. - Cardiovascular Cardiovascular exam: Present: tachycardia - GI/Abdominal GI/Abdominal exam: Present: normal bowel sounds, soft - Additional comments: Malik intact - Extremities Exam Extremities exam: Present: normal capillary refill, normal inspection - Neurological Exam Additional comments: Drowsy but does awaken. Nonverbal, does shake head yes/no. - Skin Skin exam: Present: dry, warm Palliative Quality Palliative Quality: Screen for Code Status: Yes, Screen for Goals of Care: Yes, Screen for Pain: Yes, If Pain Regimen Started, Initiate Bowel Regimen: NA, Screen for Nausea/Vomitting: Yes Code Status: 12/04/17 20:06 DNR [Resuscitation Status: Active] [RES] Routine Comment: Resuscitation Status: DNR-Comfort Care-Arrest 12/06/17 13:07 DNR [Resuscitation Status: Active] [RES] Routine Comment: Resuscitation Status: DNR-Comfort Care - Labs CBC & Chem 7: 12/05/17 03:57 12/05/17 03:57 Labs: Laboratory Results - last 24 hr 12/03/17 12/06/17 12/06/17 15:41 06:06 11:29 POC Glucose 166 H 125 H Smooth Muscle Ab Titer <1:20 Acetylchol Rcpt Block Ab 9 Acetylchol Rcpt Bind Ab 0.0 - ABG Interpretation ABG results: ABG ABG pH 7.46 pH Units (7.32-7.45) H 12/06/17 05:34 ABG pCO2 50 mmHg (35-45) H 12/06/17 05:34 ABG pO2 111 mmHg (85-104) H 12/06/17 05:34 ABG O2 Saturation 99 % (95-98) H 12/06/17 05:34 PT/INR, D-dimer PT 9.5 Seconds (9.4-12.1) 12/03/17 01:24 Consult Discharge Plan - Plan [facility]errals: [facility] [Primary Care Provider] -
--- NOTE | 2017-12-07 11:29 | Internal Med Progress Note ---
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; has been intubated following Cardiac arrest, admitted to ICU; has been evaluated by radiation oncology nurse, Neurology, and Palliative care, and family decided for compassionate extubation; He is currently awaiting formal transition to inpatient Hospice; continue management per Palliative care; PRN IV Ativan and Morphine for symptom alleviation and anxiety and respiratory distress; holding all other meds; unable to take oral diet due to mental status and weakness; Poor prognosis; Qualifiers: Respiratory failure complication: hypoxia Qualified Code(s): J96.01 - Acute respiratory failure with hypoxia (2) Cardiac arrest Current Visit: Yes Status: Acute (3) PNA (pneumonia) Current Visit: Yes Status: Suspected Qualifiers: Pneumonia type: aspiration pneumonia Aspiration pneumonia type: unspecified Laterality: right Lung location: upper lobe of lung Qualified Code(s): J69.0 - Pneumonitis due to inhalation of food and vomit (4) Hypothyroidism Current Visit: Yes Status: Chronic Qualifiers: Hypothyroidism type: unspecified Qualified Code(s): E03.9 - Hypothyroidism , unspecified (5) Motor neuron disease, unspecified Current Visit: Yes Status: Chronic - Subjective Interval history: Noted to have shallow breathing; unable to provide any history, d/w family at bedside; on Hospice care due to poor prognosis; - Constitutional Vitals: Temp Pulse Resp BP Pulse Ox 97.5 F L 91 14 163/81 100 12/07/17 07:14 12/07/17 07:14 12/07/17 07:14 12/07/17 07:14 12/07/17 07:14 General appearance: Present: A&O X 0. Absent: answers questions appropriately - Respiratory Respiratory exam: Present: accessory muscle use (slow and shallow breathing), CTAB (anterolaterally). Absent: rales, rhonchi, wheezes - Cardiovascular Cardiovascular exam: Present: RRR, +S1, +S2. Absent: diastolic murmur, gallop, rubs, systolic murmur - GI/Abdominal GI/Abdominal exam: Present: normal bowel sounds, soft, no peritoneal signs. Absent: distended, tenderness Internal Medicine: Result - Labs CBC & Chem 7: 12/05/17 03:57 12/05/17 03:57 - ABG Interpretation ABG results: ABG ABG pH 7.46 pH Units (7.32-7.45) H 12/06/17 05:34 ABG pCO2 50 mmHg (35-45) H 12/06/17 05:34 ABG pO2 111 mmHg (85-104) H 12/06/17 05:34 ABG O2 Saturation 99 % (95-98) H 12/06/17 05:34 PT/INR, D-dimer PT 9.5 Seconds (9.4-12.1) 12/03/17 01:24 - VTE Documentation of Mechanical Device: Intermittent pneumatic compression device Consult Discharge Plan - Plan [facility]errals: [facility] [Primary Care Provider] -
[2017-12-08] MEDS: *HR* Morphine 2 MG/ML SYRINGE IVP PRN ×3 (01:43→10:06)
[2017-12-08] MEDS: *HR* LORazepam 2 MG/ML VIAL IVP PRN ×7 (02:00→20:39)
[2017-12-08] MEDS: Ipratropium/Albuterol Neb 3 ML IH SCH ×4 (03:58→22:10)
[2017-12-08] MEDS: Piperacillin/Tazobactam 3.375 GM/200 ML BAG IVPB SCH (09:16)
[2017-12-08] MEDS: Morphine 50 MG in D5% in Water 45 ML IVC SCH (10:58)
--- NOTE | 2017-12-08 12:14 | Palliative Progress Note ---
Date of Encounter: 12/08/17 Time of Encounter: 09:30 - Assessment and plan (1) Generalized pain Current Visit: Yes Status: Acute Assessment and plan: Patient has received 24mg Morphine over the past 24 hours. D/W family - they are very distressed unable to tell if he is in pain, and when they should asked for medication. Family feels they have to constantly watch him for grimacing/ signs of discomfort. He still has good IV access. Discussed IV continue morphine at low rate with PRN doses as necessary and family would like to begin this to ensure he is comfortable. Will begin Morphine drip at 1mg/hr and titrate if needed. [facility] when [facility] are [facility] and discuss further care there if he does not pass away prior (2) Anxiety Current Visit: Yes Status: Acute Assessment and plan: Continue Lorazepam. Has utilized x6 last 24 hours (3) Dyspnea Current Visit: Yes Status: Acute Assessment and plan: Continue opioids PRN. Supportive oxygen. (4) Counseling regarding advanced care planning and goals of care Current Visit: Yes Status: Acute (5) PNA (pneumonia) Current Visit: Yes Status: Suspected Qualifiers: Pneumonia type: aspiration pneumonia Aspiration pneumonia type: unspecified Laterality: right Lung location: upper lobe of lung Qualified Code(s): J69.0 - Pneumonitis due to inhalation of food and vomit (6) Cardiac arrest Current Visit: Yes Status: Acute - Time Spent With Patient Total time spent is greater than 50% in coordination of care (as documented) at patient's floor/unit and/or counseling patient: 25 - 35 minutes - Subjective Interval history: Patient sleeping quietly, does awaken with assessment and opens eyes. No verbal response. Does shake his head "yes" when asked if uncomfortable and in pain. Respirations easy - irreg at this time. Family at bedside. - Constitutional Vitals: Abnormal lab results RBC 3.30 M/mcL (4.19-5.50) L 12/05/17 03:57 Hgb 10.8 g/dL (12.9-16.9) L 12/05/17 03:57 Hct 30.8 % (37.5-50.1) L 12/05/17 03:57 Lymphocytes # 0.1 K/mcL (0.6-4.6) L 12/05/17 03:57 APTT 39.3 Seconds (26.0-36.0) H 12/02/17 20:25 ABG pH 7.46 pH Units (7.32-7.45) H 12/06/17 05:34 ABG pCO2 50 mmHg (35-45) H 12/06/17 05:34 ABG pO2 111 mmHg (85-104) H 12/06/17 05:34 ABG HCO3 35 mEq/L (21-27) H 12/06/17 05:34 ABG Total CO2 37 mEq/L (20-26) H 12/06/17 05:34 ABG O2 Saturation 99 % (95-98) H 12/06/17 05:34 ABG Base Excess 10 mEq/L (-2 to 3) H 12/06/17 05:34 Carbon Dioxide 30 mEq/L (23-29) H 12/05/17 03:57 Creatinine 0.48 mg/dL (0.70-1.30) L 12/05/17 03:57 BUN/Creatinine Ratio 44 (6-26) H 12/05/17 03:57 Glucose 170 mg/dL (70-105) H 12/05/17 03:57 POC Glucose 125 (58-89) H 12/06/17 11:29 Serum Total Protein 5.9 g/dL (6.4-8.9) L 12/03/17 01:24 Globulin 2.2 g/dL (2.4-3.5) L 12/03/17 01:24 Urine Clarity Cloudy (Clear) A 12/02/17 20:41 Ur Specific [place] 1.026 (1.010-1.025) H 12/02/17 20:41 Urine Glucose (UA) 500 mg/dL (Normal) H 12/02/17 20:41 Urine Blood Small (Negative) H 12/02/17 20:41 Ur Leukocyte Esterase Large (Negative) H 12/02/17 20:41 Urine Microscopic WBC TNTC per hpf (0-3) H 12/02/17 20:41 Ur Culture Indicated? YES (NO) A 12/02/17 20:41 General appearance: Present: no acute distress - Respiratory Respiratory exam: Present: decreased breath sounds, CTAB Additional comments: Shallow irreg respirations - Cardiovascular Cardiovascular exam: Present: irregular rhythm - GI/Abdominal GI/Abdominal exam: Present: normal bowel sounds, soft - Additional comments: Malik with clear yellow urine - Extremities Exam Extremities exam: Present: normal capillary refill, normal inspection - Neurological Exam Additional comments: Awakens with assessment - very weak. Shakes head yes/no, unable to follow commands. - Skin Skin exam: Present: dry, pallor, warm Palliative Quality Palliative Quality: Screen for Code Status: Yes, Screen for Goals of Care: Yes, Screen for Pain: Yes, If Pain Regimen Started, Initiate Bowel Regimen: NA, Screen for Nausea/Vomitting: Yes Code Status: 12/04/17 20:06 DNR [Resuscitation Status: Active] [RES] Routine Comment: Resuscitation Status: DNR-Comfort Care-Arrest 12/06/17 13:07 DNR [Resuscitation Status: Active] [RES] Routine Comment: Resuscitation Status: DNR-Comfort Care - Labs CBC & Chem 7: 12/05/17 03:57 12/05/17 03:57 - ABG Interpretation ABG results: ABG ABG pH 7.46 pH Units (7.32-7.45) H 12/06/17 05:34 ABG pCO2 50 mmHg (35-45) H 12/06/17 05:34 ABG pO2 111 mmHg (85-104) H 12/06/17 05:34 ABG O2 Saturation 99 % (95-98) H 12/06/17 05:34 PT/INR, D-dimer PT 9.5 Seconds (9.4-12.1) 12/03/17 01:24 Consult Discharge Plan - Plan [facility]errals: [facility] [Primary Care Provider] -
--- NOTE | 2017-12-08 16:37 | Internal Med Progress Note ---
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; has been intubated following Cardiac arrest; has been evaluated by events intern, Neurology, and Palliative care, and family decided for compassionate extubation; He is currently awaiting formal transition to inpatient Hospice; actively being managed by Palliative care service but patient cannot be placed under our [facility]; continue management per Palliative care; PRN IV Ativan and IV Morphine drip for symptom alleviation and anxiety and respiratory distress; holding all other meds; unable to take oral diet due to mental status and weakness; Poor prognosis; Qualifiers: Respiratory failure complication: hypoxia Qualified Code(s): J96.01 - Acute respiratory failure with hypoxia (2) Cardiac arrest Current Visit: Yes Status: Acute (3) PNA (pneumonia) Current Visit: Yes Status: Suspected Qualifiers: Pneumonia type: aspiration pneumonia Aspiration pneumonia type: unspecified Laterality: right Lung location: upper lobe of lung Qualified Code(s): J69.0 - Pneumonitis due to inhalation of food and vomit (4) Hypothyroidism Current Visit: Yes Status: Chronic Qualifiers: Hypothyroidism type: unspecified Qualified Code(s): E03.9 - Hypothyroidism , unspecified (5) Motor neuron disease, unspecified Current Visit: Yes Status: Chronic - Subjective Interval history: Noyed to be asleep upon my evaluation but d/w family at bedside- report that he has been alert and able to nod his head regarding pain and discomfort, so he has been started on IV Morphine drip per Palliative care; no oral intake; - Constitutional Vitals: Temp Pulse Resp BP Pulse Ox 98.8 F 107 13 103/55 98 12/08/17 15:47 12/08/17 15:47 12/08/17 15:47 12/08/17 15:47 12/08/17 15:47 General appearance: Present: A&O X 0. Absent: answers questions appropriately - Respiratory Respiratory exam: Present: CTAB (anterolaterally B/L). Absent: accessory muscle use, rales, rhonchi, wheezes Additional comments: bradypnea - Cardiovascular Cardiovascular exam: Present: RRR, +S1, +S2. Absent: diastolic murmur, gallop, rubs, systolic murmur Internal Medicine: Result - Labs CBC & Chem 7: 12/05/17 03:57 12/05/17 03:57 - ABG Interpretation ABG results: ABG ABG pH 7.46 pH Units (7.32-7.45) H 12/06/17 05:34 ABG pCO2 50 mmHg (35-45) H 12/06/17 05:34 ABG pO2 111 mmHg (85-104) H 12/06/17 05:34 ABG O2 Saturation 99 % (95-98) H 12/06/17 05:34 PT/INR, D-dimer PT 9.5 Seconds (9.4-12.1) 12/03/17 01:24 - VTE Documentation of Mechanical Device: Intermittent pneumatic compression device Consult Discharge Plan - Plan [facility]errals: [facility] [Primary Care Provider] -
[2017-12-08] MEDS ORDERED: 0.9 % Sodium Chloride 500 ML ONE (23:46)
[2017-12-09] MEDS: Ipratropium/Albuterol Neb 3 ML IH SCH ×2 (03:23→10:59)
[2017-12-09 07:14] VITALS: BP 123/54
[2017-12-09] MEDS: *HR* LORazepam 2 MG/ML VIAL IVP PRN (10:53)
--- NOTE | 2017-12-09 13:03 | Discharge Summary ---
Date of Encounter: 12/09/17 Time of Encounter: 13:02 - Discharge Diagnosis (1) Acute respiratory failure Priority: Primary Status: Acute Qualifiers: Respiratory failure complication: hypoxia Qualified Code(s): J96.01 - Acute respiratory failure with hypoxia (2) Cardiac arrest Priority: Primary Status: Acute (3) PNA (pneumonia) Priority: Primary Status: Suspected Qualifiers: Pneumonia type: aspiration pneumonia Aspiration pneumonia type: unspecified Laterality: right Lung location: upper lobe of lung Qualified Code(s): J69.0 - Pneumonitis due to inhalation of food and vomit (4) Hypothyroidism Priority: Secondary Status: Chronic Qualifiers: Hypothyroidism type: unspecified Qualified Code(s): E03.9 - Hypothyroidism , unspecified (5) Motor neuron disease, unspecified Priority: Primary Status: Chronic - Discharge Medications Home Medications: Acetaminophen [Tylenol] 1,000 mg PO TID PRN 12/02/17 [History] Calcium Carbonate/Vitamin D3 [Calcium 500-Vit D3 200 Tablet] 1 each PO BID 12/02 [History] Cholecalciferol (D-3) [Vitamin D] 2,000 unit PO DAILY 12/02/17 [History] Diclofenac Sodium [Voltaren] 2 gm TP QID PRN MDD 16 gm 12/02/17 [History] Duloxetine HCl [Cymbalta] 60 mg PO DAILY 12/02/17 [History] Finasteride [Proscar] 5 mg PO DAILY 12/02/17 [History] Lactose-Reduced Food [Ensure Plus] 1 bottle PO BID 12/02/17 [History] Levothyroxine [Synthroid] 75 mcg PO 0630 12/02/17 [History] Lidocaine Patch [Lidoderm 5% patch] 1 each TP DAILY 12/02/17 [History] Multivitamin-Min/Iron/FA/Vit K [Multi-Day Plus Minerals Tablet] 1 each PO DAILY 12/02/17 [History] Omeprazole [PriLOSEC] 20 mg PO DAILY 12/02/17 [History] Sennosides [Senna] 8.6 mg PO DAILY 12/02/17 [History] Tamsulosin [Flomax] 0.4 mg PO HS 12/02/17 [History] Allergies/Adverse Reactions: 3 Allergy/AdvReac Type Severity Reaction Status Date / Time Sulfa (Sulfonamide Allergy See Verified 12/02/17 20:46 Antibiotics) Comments Date of admission: 12/03/17 01:49 Primary care physician: PCP [facility] Consults: 12/03/17 13:17 Consult to Neurology [CONS] Routine Consulting Provider: [facility] Reason for Consult: Status post cardiac arrest, reported ALS Call Completed: Yes 12/04/17 13:13 Consult to Palliative Care [CONS] Routine Comment: Consulting Provider: Palliative Care [facility] Reason for Consult: Goals of care, code status. Discussed consult at rounds. Patient likely terminal neurological conditon which will make it difficult to ween from vent. Neuro on board. Call Completed: Yes Discharging clinician: Yris Fortune Anticipated date of discharge: 12/09/17 - Patient Status Disposition: Hospice - Medical Facility Condition: Critical Functional capacity at discharge: bed bound Overall status at discharge: patient is not back to baseline - Discharge Instructions [facility] - - Diet and Activity Activity: wear oxygen at all times Hospital course: Mr. Schmidt is a 82 year old male with the above medical problems, who was admitted following cardiac arrest at the [facility]. He received CPR and was intubated, admitted to ICU and started on hypothermia protocol. neurology was consulted and initially patient had no evidence of brain stem damage from hypoxia. However he could not be weaned off from ventilator and it was noted that he has been having progressive weakness and Neurology workup at [place], reviewed by our Neurologist, showed bulbar motor neuron disease, with poor prognosis. P[place] was noted to be alert despite being on ventilator and apparently refused PEG tube or tracheostomy. Palliative care team was involved and patient;s family opted for compassionate extubation, following which he awas transferred to regular floor and actively followed by Hospice team due to patient being [facility] patient, awaiting inpatient Hospice bed due to long weekend. He has been on IV Morphine drip and PRN IV Ativan with no oral intake, lethargy and bradypnea. He is accepted by [facility] today and is being transferred to continue Hospice care. - Time Spent with Patient Total time spent providing and/or coordinating discharge services: Greater than 30 minutes (40 min) - Constitutional Vitals: Temp Pulse Resp BP Pulse Ox 98.4 F 108 9 123/54 97 12/09/17 07:09 12/09/17 07:09 12/09/17 07:09 12/09/17 07:09 12/09/17 07:09 General appearance: Present: A&O X 0. Absent: answers questions appropriately - Respiratory Respiratory exam: Present: CTAB (shallow and bradypneic breathing). Absent: accessory muscle use, rales, rhonchi, wheezes - Cardiovascular Cardiovascular exam: Present: RRR, +S1, +S2. Absent: diastolic murmur, gallop, rubs, systolic murmur - VTE Documentation of Mechanical Device: Intermittent pneumatic compression device
--- NOTE | 2017-12-09 13:27 | Palliative Progress Note ---
<Serafin Cardozo - Last Filed: 12/09/17 13:23> Date of Encounter: 12/09/17 Time of Encounter: 09:30 - Assessment and plan (1) Generalized pain Current Visit: Yes Status: Acute Assessment and plan: Patient was placed on Morphine drip at 1mg/hr with titration as needed. Patient appears comfortable and in no acute distress. Family at bedside and stated that the patient appears a lot more comfortable on the drip than yesterday. Plan to continue the morphine drip as patient is transferred to the [place]. (2) Counseling regarding advanced care planning and goals of care Current Visit: Yes Status: Acute Assessment and plan: The patient's son (Georgi) who is also his POA agrees to have the patient's code status changed to DNR-Comfort Care. Code status was discussed with the family by Dr. Baeza. (3) PNA (pneumonia) Current Visit: Yes Status: Suspected Qualifiers: Pneumonia type: aspiration pneumonia Aspiration pneumonia type: unspecified Laterality: right Lung location: upper lobe of lung Qualified Code(s): J69.0 - Pneumonitis due to inhalation of food and vomit (4) Cardiac arrest Current Visit: Yes Status: Acute (5) Dyspnea Current Visit: Yes Status: Acute Assessment and plan: Continue opioids as needed. Give supportive oxygen. Qualifiers: Dyspnea type: unspecified Qualified Code(s): R06.00 - Dyspnea, unspecified (6) Anxiety Current Visit: Yes Status: Acute Assessment and plan: Continue Lorazepam as needed for anxiety. Patient is comfortable and in no distress at this time. - Time Spent With Patient Total time spent is greater than 50% in coordination of care (as documented) at patient's floor/unit and/or counseling patient: 25 - 35 minutes - Subjective Interval history: Patient sleeping quietly. Patient appears comfortable and in no acute distress. No verbal response. Respirations are easy and regular. Patient was tachycardiac on exam at 102 bpm. Family at bedside and stated that the patient appears a lot more comfortable since the morphine drip was started. Code status was discussed with the family by Dr. Baeza. Family agreed for the code status to be changed to DNR-Comfort Care. - Constitutional Vitals: Abnormal lab results RBC 3.30 M/mcL (4.19-5.50) L 12/05/17 03:57 Hgb 10.8 g/dL (12.9-16.9) L 12/05/17 03:57 Hct 30.8 % (37.5-50.1) L 12/05/17 03:57 Lymphocytes # 0.1 K/mcL (0.6-4.6) L 12/05/17 03:57 APTT 39.3 Seconds (26.0-36.0) H 12/02/17 20:25 ABG pH 7.46 pH Units (7.32-7.45) H 12/06/17 05:34 ABG pCO2 50 mmHg (35-45) H 12/06/17 05:34 ABG pO2 111 mmHg (85-104) H 12/06/17 05:34 ABG HCO3 35 mEq/L (21-27) H 12/06/17 05:34 ABG Total CO2 37 mEq/L (20-26) H 12/06/17 05:34 ABG O2 Saturation 99 % (95-98) H 12/06/17 05:34 ABG Base Excess 10 mEq/L (-2 to 3) H 12/06/17 05:34 Carbon Dioxide 30 mEq/L (23-29) H 12/05/17 03:57 Creatinine 0.48 mg/dL (0.70-1.30) L 12/05/17 03:57 BUN/Creatinine Ratio 44 (6-26) H 12/05/17 03:57 Glucose 170 mg/dL (70-105) H 12/05/17 03:57 POC Glucose 125 (58-89) H 12/06/17 11:29 Serum Total Protein 5.9 g/dL (6.4-8.9) L 12/03/17 01:24 Globulin 2.2 g/dL (2.4-3.5) L 12/03/17 01:24 Urine Clarity Cloudy (Clear) A 12/02/17 20:41 Ur Specific Bonita 1.026 (1.010-1.025) H 12/02/17 20:41 Urine Glucose (UA) 500 mg/dL (Normal) H 12/02/17 20:41 Urine Blood Small (Negative) H 12/02/17 20:41 Ur Leukocyte Esterase Large (Negative) H 12/02/17 20:41 Urine Microscopic WBC TNTC per hpf (0-3) H 12/02/17 20:41 Ur Culture Indicated? YES (NO) A 12/02/17 20:41 General appearance: Present: no acute distress - Respiratory Respiratory exam: Present: decreased breath sounds (decreased breath sounds bilaterally). Absent: accessory muscle use, respiratory distress - Cardiovascular Cardiovascular exam: Present: RRR, tachycardia (102 bpm on my exam). Absent: diastolic murmur, rubs - GI/Abdominal GI/Abdominal exam: Present: soft. Absent: distended, guarding, tenderness - Neurological Exam Additional comments: Awakens on assessment but appears weak. Unable to follow commands. Palliative Quality Palliative Quality: Screen for Code Status: Yes, Screen for Goals of Care: Yes, Screen for Pain: Yes, If Pain Regimen Started, Initiate Bowel Regimen: NA, Screen for Nausea/Vomitting: Yes Code Status: 12/04/17 20:06 DNR [Resuscitation Status: Active] [RES] Routine Comment: Resuscitation Status: DNR-Comfort Care-Arrest 12/06/17 13:07 DNR [Resuscitation Status: Active] [RES] Routine Comment: Resuscitation Status: DNR-Comfort Care - Labs CBC & Chem 7: 12/05/17 03:57 12/05/17 03:57 - ABG Interpretation ABG results: ABG ABG pH 7.46 pH Units (7.32-7.45) H 12/06/17 05:34 ABG pCO2 50 mmHg (35-45) H 12/06/17 05:34 ABG pO2 111 mmHg (85-104) H 12/06/17 05:34 ABG O2 Saturation 99 % (95-98) H 12/06/17 05:34 PT/INR, D-dimer PT 9.5 Seconds (9.4-12.1) 12/03/17 01:24 Consult Discharge Plan - Plan [facility]errals: [facility] [Primary Care Provider[facility] - <Mando Baeza - Last Filed: 12/09/17 13:56> Date of Encounter: 12/09/17 - Time Spent With Patient Total time spent is greater than 50% in coordination of care (as documented) at patient's floor/unit and/or counseling patient: - Constitutional Vitals: Abnormal lab results RBC 3.30 M/mcL (4.19-5.50) L 12/05/17 03:57 Hgb 10.8 g/dL (12.9-16.9) L 12/05/17 03:57 Hct 30.8 % (37.5-50.1) L 12/05/17 03:57 Lymphocytes # 0.1 K/mcL (0.6-4.6) L 12/05/17 03:57 APTT 39.3 Seconds (26.0-36.0) H 12/02/17 20:25 ABG pH 7.46 pH Units (7.32-7.45) H 12/06/17 05:34 ABG pCO2 50 mmHg (35-45) H 12/06/17 05:34 ABG pO2 111 mmHg (85-104) H 12/06/17 05:34 ABG HCO3 35 mEq/L (21-27) H 12/06/17 05:34 ABG Total CO2 37 mEq/L (20-26) H 12/06/17 05:34 ABG O2 Saturation 99 % (95-98) H 12/06/17 05:34 ABG Base Excess 10 mEq/L (-2 to 3) H 12/06/17 05:34 Carbon Dioxide 30 mEq/L (23-29) H 12/05/17 03:57 Creatinine 0.48 mg/dL (0.70-1.30) L 12/05/17 03:57 BUN/Creatinine Ratio 44 (6-26) H 12/05/17 03:57 Glucose 170 mg/dL (70-105) H 12/05/17 03:57 POC Glucose 125 (58-89) H 12/06/17 11:29 Serum Total Protein 5.9 g/dL (6.4-8.9) L 12/03/17 01:24 Globulin 2.2 g/dL (2.4-3.5) L 12/03/17 01:24 Urine Clarity Cloudy (Clear) A 12/02/17 20:41 Ur Specific Bonita 1.026 (1.010-1.025) H 12/02/17 20:41 Urine Glucose (UA) 500 mg/dL (Normal) H 12/02/17 20:41 Urine Blood Small (Negative) H 12/02/17 20:41 Ur Leukocyte Esterase Large (Negative) H 12/02/17 20:41 Urine Microscopic WBC TNTC per hpf (0-3) H 12/02/17 20:41 Ur Culture Indicated? YES (NO) A 12/02/17 20:41 - Attending Attestation I examined this patient and my medical decision-making was reviewed with the Resident Physician. I agree with the documented findings, disposition and treatment plan as described except to the extent set forth below. Patient will receive a when necessary dose prior to discharge his morphine, and Ativan if needed. [facility] continue the [facility]p however they have assured me that they will continue to give him scheduled medications at a frequent rate. Palliative Quality Code Status: 12/04/17 20:06 DNR [Resuscitation Status: Active] [RES] Routine Comment: Resuscitation Status: DNR-Comfort Care-Arrest 12/06/17 13:07 DNR [Resuscitation Status: Active] [RES] Routine Comment: Resuscitation Status: DNR-Comfort Care - Labs CBC & Chem 7: 12/05/17 03:57 12/05/17 03:57 - ABG Interpretation ABG results: ABG ABG pH 7.46 pH Units (7.32-7.45) H 12/06/17 05:34 ABG pCO2 50 mmHg (35-45) H 12/06/17 05:34 ABG pO2 111 mmHg (85-104) H 12/06/17 05:34 ABG O2 Saturation 99 % (95-98) H 12/06/17 05:34 PT/INR, D-dimer PT 9.5 Seconds (9.4-12.1) 12/03/17 01:24
[2017-12-09] MEDS: *HR* Morphine 2 MG/ML SYRINGE IVP PRN (13:36)
[2017-12-09] MEDS: Morphine 50 MG in D5% in Water 45 ML IVC SCH (13:43)
== END 2017-12-09 14:00 | disposition hospice, inpatient (51) | DRG 208 ==
LOC: EMEROO 20:16 → ICNU 12-03 01:49 → SUATTDRO 12-03 01:49 → ICNU 12-03 02:54 → 2ANU 12-06 18:18
PROVIDERS: ADMIT Internal Medicine; ATTEND Internal Medicine